=== PATIENT | female | born 1945 | race Caucasian/White ===

== ENCOUNTER 2017-09-13 17:25 | Emergency (ER) | payer MEDICARE, BC, SELFPAY ==
[2017-09-13 18:18] VITALS: BP 193/89; PULSE 84; RESP 18; TEMP 36.7; O2SAT 96; BMI 25.6
--- NOTE | 2017-09-13 18:41 | XR_ITS ---
XR chest 2V Ordering Physician: Tania Lugo Patient Age: 72 years: Female HISTORY: ITS.REASON: PAIN WITH COUGH Chest pain with cough TECHNIQUE: PA and lateral chest COMPARISON :None FINDINGS PA and lateral lateral chest . Nothing definitely acute Lungs well expanded and clear. Heart and mediastinal structures unremarkable nothing definitely acute central markings perihilar markings upper normal left probably within normal limits. No focal pneumonia. No pleural effusion. No pneumothorax. Mild hyperexpansion may reflect minor chronic changes. Slight elevation right hemidiaphragm. . Chest wall intact. Anterior marginal osteophytes mild degenerative changes T-spine but no compression fractures IMPRESSION: Nothing definitely acute.
--- NOTE | 2017-09-13 18:55 | HMH.EDUTC ---
[facility] [place] Disposition Clinical Impression: Rib pain Disposition: Home, Self-Care Condition on Discharge: Good Instructions: DI for Chronic Pain -- Adult Additional Instructions: Follow up with family doctor if you do not have a doctor pick one from the list provided to you If pain continued or worsens or you began to have trouble breathing go straight to the ER REturn if needed Over the counter medication will help with pain Prescriptions: Ibuprofen [Motrin 400mg tablet] 400 mg PO Q6HP PRN #20 tab PRN Reason: Moderate Pain Benzonatate [Tessalon Perle 100mg Cap] 100 mg PO TID PRN #15 cap PRN Reason: Cough Medical Decision Making - Medical Records Medical records reviewed: Yes: I reviewed the patient's medical records. Vital Signs: 09/13/17 18:18 Temperature 98.1 F Temperature Source Temporal Artery Scan Pulse Rate [Left Brachial] 84 Respiratory Rate 18 Blood Pressure [Right Arm] 193/89 Blood Pressure Mean [Right Arm] 123 Blood Pressure Source [Right Arm] Automatic Cuff Blood Pressure Position [Right Arm] Sitting 02 Sat by Pulse Oximetry 96 Oxygen Delivery Method Room Air Orders (Tests/Meds): ORDERS Category Date Time Status Chest XR 2 view (NOT portable) [XR chest 2V] Stat Exams 09/13/17 18:41 Ordered - Radiology Data #1 Image(s): Chest Image Reviewed: Yes I reviewed the patient's radiology image w/the ED provider Preliminary Findings: No Infiltrates Seen - Christian Inquiry Pt receiving controlled substance: No Christian was queried for this patient: No - Reevaluation(s) Time: 19:15 (Patient educated that she needed to get a family doctor and have an extensive workup) [facility] [place] HPI - General Stated complaint: coughing,pain r side, incontinence Mode of Arrival: Ambulatory Source of Information: Patient Limitations: No Limitations Description of Symptoms (Recalled from Triage Doc. by RN): C/O RIB PAIN FROM COUGHING HEENT Symptoms (Recalled from RN notes): No Resp Symptoms (Recalled from RN notes): No Skin Symptoms (Recalled from RN notes): No MS Symptoms (Recalled from RN notes): No Functional Status (Recalled from RN notes): NA - History of Present Illness Provider Complaint: Patient state that she had flu last week and now she was coughing and now having pain on her right side State that she is not sure if the pain is in her lungs or her ribs State that it feels like it may be her lung area - Related Data Previous Rx's Medication Instructions Recorded Benzonatate [Tessalon Perle 100mg 100 mg PO TID PRN #15 cap 09/13/17 Cap] Ibuprofen [Motrin 400mg 400 mg PO Q6HP PRN #20 tab 09/13/17 tablet] Allergies Allergy/AdvReac Type Severity Reaction Status Date / Time No Known Allergies Allergy Verified 09/13/17 18:21 - Worker's Comp Is this a Worker's Comp case?: No [facility] History I have reviewed the patient's past medical history: Yes - *Social History Alcohol Intake: never - Psychiatric History Expresses thoughts of harming self/others: None Suicide Plan Description: No Plan ROS Obtained: Yes All systems reviewed & no additional complaints Physical Exam - General General appearance: alert, in no apparent distress - Chest Chest inspection: Present: normal inspection, symmetric chest wall rise. Absent: tenderness - Respiratory Respiratory exam: Present: normal lung sounds bilaterally. Absent: respiratory distress - Cardiovascular Cardiovascular exam: Present: regular rate, normal rhythm. Absent: JVD - Neurological Exam Neurological exam: Present: alert, oriented X3
--- NOTE | 2017-09-13 18:59 | ED_ITS ---
[facility] [place] Disposition Clinical Impression: Rib pain Disposition: Home, Self-Care Condition on Discharge: Good Instructions: DI for Chronic Pain -- Adult Additional Instructions: Follow up with family doctor if you do not have a doctor pick one from the list provided to you If pain continued or worsens or you began to have trouble breathing go straight to the ER REturn if needed Over the counter medication will help with pain Prescriptions: Ibuprofen [Motrin 400mg tablet] 400 mg PO Q6HP PRN #20 tab PRN Reason: Moderate Pain Benzonatate [Tessalon Perle 100mg Cap] 100 mg PO TID PRN #15 cap PRN Reason: Cough Medical Decision Making - Medical Records Medical records reviewed: Yes: I reviewed the patient's medical records. Vital Signs: 09/13/17 18:18 Temperature 98.1 F Temperature Source Temporal Artery Scan Pulse Rate [Left Brachial] 84 Respiratory Rate 18 Blood Pressure [Right Arm] 193/89 Blood Pressure Mean [Right Arm] 123 Blood Pressure Source [Right Arm] Automatic Cuff Blood Pressure Position [Right Arm] Sitting 02 Sat by Pulse Oximetry 96 Oxygen Delivery Method Room Air Orders (Tests/Meds): ORDERS Category Date Time Status Chest XR 2 view (NOT portable) [XR chest 2V] Stat Exams 09/13/17 18:41 Ordered - Radiology Data #1 Image(s): Chest Image Reviewed: Yes I reviewed the patient's radiology image w/the ED provider Preliminary Findings: No Infiltrates Seen - Christian Inquiry Pt receiving controlled substance: No Christian was queried for this patient: No - Reevaluation(s) Time: 19:15 (Patient educated that she needed to get a family doctor and have an extensive workup) [facility] [place] HPI - General Stated complaint: coughing,pain r side, incontinence Mode of Arrival: Ambulatory Source of Information: Patient Limitations: No Limitations Description of Symptoms (Recalled from Triage Doc. by RN): C/O RIB PAIN FROM COUGHING HEENT Symptoms (Recalled from RN notes): No Resp Symptoms (Recalled from RN notes): No Skin Symptoms (Recalled from RN notes): No MS Symptoms (Recalled from RN notes): No Functional Status (Recalled from RN notes): NA - History of Present Illness Provider Complaint: Patient state that she had flu last week and now she was coughing and now having pain on her right side State that she is not sure if the pain is in her lungs or her ribs State that it feels like it may be her lung area - Related Data Previous Rx's Medication Instructions Recorded Benzonatate [Tessalon Perle 100mg 100 mg PO TID PRN #15 cap 09/13/17 Cap] Ibuprofen [Motrin 400mg 400 mg PO Q6HP PRN #20 tab 09/13/17 tablet] Allergies Allergy/AdvReac Type Severity Reaction Status Date / Time No Known Allergies Allergy Verified 09/13/17 18:21 - Worker's Comp Is this a Worker's Comp case?: No [facility] History I have reviewed the patient's past medical history: Yes - *Social History Alcohol Intake: never - Psychiatric History Expresses thoughts of harming self/others: None Suicide Plan Description: No Plan ROS Obtained: Yes All systems reviewed & no additional complaints Physical Exam - General General appearance: alert, in no apparent distress - Chest Chest inspection: Present: normal inspection, symmetric chest
== END 2017-09-13 19:33 | disposition home or self-care (01) ==
PROVIDERS: Emergency Provider Nurse Practitioner
DX: R07.81 Pleurodynia (principal)
CPT/HCPCS: 71046; 99202

== ENCOUNTER 2021-07-08 13:16 | Emergency (ER) | payer MEDICARE, BC, SELFPAY ==
[2021-07-08 13:40] VITALS: BP 190/91; PULSE 76; RESP 19; TEMP 36.7; O2SAT 97; BMI 24.2
--- NOTE | 2021-07-08 13:57 | XR_ITS ---
PROCEDURE INFORMATION: Exam: XR Right Humerus Exam date and time: 07/08/2021 1:57 PM Age: 76 years old Clinical indication: Injury or trauma; Fall; Blunt trauma (contusions or hematomas); Shoulder; Right; Injury date: 07/07/21; Additional info: Fall hit shoulder TECHNIQUE: Imaging protocol: XR Right humerus. Views: 2 or more views. COMPARISON: CR CXR2V XR chest 2V 09/13/2017 6:47 PM FINDINGS: Bones/joints: There is no evidence of acute fracture. There is no evidence of joint malalignment or dislocation. Mild degenerative changes of the glenohumeral joint. Soft tissues: No focal soft tissue swelling. IMPRESSION: 1. No evidence of acute fracture. 2. No evidence of acute dislocation. 3. Mild degenerative changes of the glenohumeral joint.
--- NOTE | 2021-07-08 14:19 | HMH.EDUTC ---
[facility] [place] Clinical Impression: Contusion, arm, upper Qualifiers: Encounter type: initial encounter Laterality: right Qualified Code(s): S40.021A - Contusion of right upper arm, initial encounter Disposition: Home, Self-Care Condition on Discharge: Good Instructions: How To Perform RICE (Rest, Ice, Compress, Elevate), How to Apply an Betito Wrap Additional Instructions: *RICE, Rest the extremity, Ice 15-20 minutes 3-4 times daily, Compress- wear the betito wrap as discussed as much as possible to help reduce swelling and pain, Elevate the extremity when at rest *Betito wrap is for support and help control swelling, use it except in the shower. Be sure that is not to tight but not to loose either *Elevate when resting *Over the counter Ibuprofen every 6-8 hours as needed for pain an inflammation as directed on package. If need something more can take Tylenol in between doses of Ibuprofen to help Immediately follow up with your family doctor for new or worsening of symptoms, or no noticeable improvement over the next 3-5 days Referrals: Rebeca Aguiar [Primary Care Provider] - As needed Time of Disposition: 14:29 Medical Decision Making - Christian Inquiry Pt receiving controlled substance: No Christian was queried for this patient: No Vital Signs: 07/08/21 13:40 07/08/21 14:37 Temperature 98.0 F 98.0 F Temperature Source Oral Pulse Rate 76 Pulse Rate [Left Brachial] 76 Respiratory Rate 19 19 Blood Pressure 187/88 H Blood Pressure [Left Arm] 190/91 H Blood Pressure Mean [Left Arm] 124 Blood Pressure Source [Left Arm] Automatic Cuff Blood Pressure Position [Left Arm] Sitting 02 Sat by Pulse Oximetry 97 Oxygen Delivery Method Room Air - Radiology Data #1 Image(s): Humerus Image Reviewed: Yes I have reviewed radiologist's interpretation IMPRESSION: 1. No evidence of acute fracture. 2. No evidence of acute dislocation. 3. Mild degenerative changes of the glenohumeral joint. [facility] [place] - General Stated complaint: AO 1114 fall, right arm pain Time Seen by Provider: 07/08/21 14:20 Mode of Arrival: Ambulatory Source of Information: Patient, Relative Limitations: No Limitations Description of Symptoms (Recalled from Triage Doc. by RN): PATIENT C/O PAIN TO RIGHT UPPER ARM AFTER FALLING DOWN SOME STEPS THIS MORNING HEENT Symptoms (Recalled from RN notes): No Resp Symptoms (Recalled from RN notes): No Skin Symptoms (Recalled from RN notes): No MS Symptoms (Recalled from RN notes): Yes Functional Status (Recalled from RN notes): WNL - History of Present Illness Provider Complaint: Patient states that she was packing a laundry basket when she tripped and fell on the steps at home and landed on her right arm State that since then she has been having pain in her right upper arm when she moves it or touches it and she noticed she had some bruising States that son brought her in to get her checked - Related Data Previous Rx's Medication Instructions Recorded Benzonatate [Tessalon Perle 100mg 100 mg PO TID PRN #15 cap 09/13/17 Cap] Ibuprofen [Motrin 400mg 400 mg PO Q6HP PRN #20 tab 09/13/17 tablet] Allergies Allergy/AdvReac Type Severity Reaction Status Date / Time No Known Allergies Allergy Verified 09/13/17 18:21 - Worker's Comp Is this a Worker's Comp case?: No [facility] History - Hepatitis A Screen Drug use history?: No High risk sexual behaviors?: No History of sexually transmitted infection?: No Currently employed?: No Childcare worker?: No Do you have indoor plumbing?: Yes Do you have electricity?: Yes Attestation statement:: This patient has been screened for Hepatitis A risk factors. I have reviewed the patient's past medical history: Yes - Social History Alcohol Intake: never ROS Obtained: Yes All systems reviewed & no additional complaints, Yes Systems reviewed as appropriate & no additional complaints - ENT Ears, Nose, Mouth, and Throat: Reports system revi
[2021-07-08 14:37] VITALS: BP 187/88; PULSE 76; RESP 19; TEMP 36.7; O2SAT 97
[2021-07-08 14:45] VITALS: BP 189/94; PULSE 77; RESP 18; TEMP 36.8; O2SAT 98; BMI 27.4
== END 2021-07-08 14:45 | disposition home or self-care (01) ==
PROVIDERS: Emergency Provider Nurse Practitioner; PCP Family Medicine
DX: S40.021A Contusion of right upper arm, initial encounter (principal); W10.9XXA Fall (on) (from) unspecified stairs and steps, initial encounter; Y92.019 Unspecified place in single-family (private) house as the place of occurrence of the external cause
CPT/HCPCS: G0463; 73060; 99202

== ENCOUNTER 2022-12-03 12:04 | Inpatient (IN) | payer MEDICARE, BC, SELFPAY ==
[2022-12-03] VITALS (10 sets, daily range): BP systolic 114–171; BP diastolic 64–92; PULSE 74–91; RESP 15–20; TEMP 34.3–37.2; O2SAT 92–100; BMI 25.4; BMI 20.5
--- NOTE | 2022-12-03 12:59 | XR_ITS ---
FINAL REPORT CLINICAL HISTORY: ams FINDINGS: SINGLE-VIEW CHEST The heart size is normal. The mediastinum is normal. The lungs are clear. There is no pneumothorax. There are degenerative changes of the shoulders. IMPRESSION: No acute cardiopulmonary process. Reviewed, Interpreted and Dictated by Aayush Rodrigues III, MD Transcribed by Apurva Bailey Authenticated and . [facility]
--- NOTE | 2022-12-03 12:59 | CT_ITS ---
FINAL REPORT CLINICAL HISTORY: ams FINDINGS: Axial images of the head were obtained without contrast. Coronal reformatted images were also obtained. This study was performed with techniques to keep radiation doses as low as reasonably achievable (ALARA). Individualized dose reduction techniques using automated exposure control or adjustment of mA and/or kV according to the patient''s size were employed. There is generalized age-appropriate atrophy. Periventricular low-attenuation areas are seen consistent with mild chronic ischemic changes. There is no evidence of intracranial hemorrhage or mass. There is no evidence of acute infarct. There is no evidence of shift of the midline structures. No skull abnormality is seen on the bone window images. There is mucosal thickening in the left maxillary sinus. IMPRESSION: Atrophy and mild periventricular chronic ischemic changes. No acute intracranial abnormality identified. Reviewed, Interpreted and Dictated by Aayush Rodrigues III, MD Transcribed by Apurva Bailey Authenticated and [facility]
--- NOTE | 2022-12-03 13:05 | HMH.EDGENADL ---
Discharge Plan Disposition Chief Complaint: Altered Mental Status Prescriptions Prescriptions: No Action Unobtainable Clinical Impressions Clinical Impression: Sepsis Instructions Patient Instructions: DI for Altered Mental Status Discharge ED Provider: Fernando Pryor General Adult HPI General Chief complaint: Altered Mental Status Stated complaint: AMS Time Seen by Provider: 12/03/22 12:05 Mode of Arrival: EMS Source of Information: Patient and EMS Limitations: No Limitations Description of Symptoms (Recalled from ER Triage Doc. by RN): pt to ed c/o ams. per ems family states the found pt to be confused and had became incontinent. pt has no complaints of pain but is otherwise a poor historian. History of Present Illness HPI narrative: 77-year-old female presents with confusion. Per family she has been incontinent as well. She has a left lower leg ulcer as well that is mildly red. Family is concerned she may have an infection. No other abdominal pain or chest pain however patient is poor historian and family is not available initial evaluation Related Data Home Medications Medication Instructions Recorded Confirmed Unobtainable 12/03/22 12/03/22 Allergies Allergy/AdvReac Type Severity Reaction Status Date / Time No Known Allergies Allergy Verified 09/13/17 18:21 [facility] Disclaimer: The information contained in this section may have been updated after the patient was seen, as this information can be updated by other users. Social History Smoking Status: Never smoker alcohol intake: never current occupational status: unemployed Travel in the last 8 weeks: Inside the [facility] ROS Obtained: Yes unobtainable due to mental status Physical Exam General General appearance: alert and in no apparent distress Eye Eye exam: Present PERRL and EOMI ENT ENT exam: Present normal exam and normal oropharynx Neck Neck exam: Present normal inspection Chest Chest inspection: Present symmetric chest wall rise Respiratory Respiratory exam: Present normal lung sounds bilaterally; Absent respiratory distress Cardiovascular Cardiovascular exam: Present regular rate and normal rhythm Abdominal Exam Abdominal exam: Present soft; Absent distention, tenderness, guarding, rebound, Martinez's sign or tenderness at McBurney's Point Extremities Exam Extremities exam: Present other (Ulcer left lower extremity mild redness) Back Exam Back exam: Present normal inspection Neurological Exam Neurological exam: Present alert and oriented X3 Psychiatric Psychiatric exam: Present normal affect and normal mood Skin Skin exam: Present warm, dry and intact Lymphatic Lymphatic Findings: no adenopathy Medical Decision Making Medical Records Medical records reviewed: Yes I reviewed the patient's medical records. Christian Inquiry Pt receiving controlled substance: No Christian was queried for this patient: No Vital Signs: 12/03/22 12:51 12/03/22 12:35 Temperature 93.7 F L Temperature Source Rectal Pulse Rate 74 Pulse Rate [Left Radial] 81 Respiratory Rate 20 Blood Pressure 171/92 H Blood Pressure [Right Arm] 171/92 H Blood Pressure Mean 118 Blood Pressure Mean [Right Arm] 118 02 Sat by Pulse Oximetry 100 100 Oxygen Delivery Method Room Air Lab Data Lab Results 12/03/22 12:29: Urine Color Yellow, Urine Appearance Cloudy, Urine pH 5.0, Ur Specific Lloyd >= 1.030, Urine Protein 2+, Urine Glucose (UA) Negative, Urine Ketones Trace, Urine Blood Trace-i, Urine Nitrate Positive, Urine Bilirubin 3+ A, Urine Urobilinogen >=8.0, Ur Leukocyte Esterase Trace, Urine RBC 3-5, Urine WBC 10-20, Ur Squamous Epith Cells Occasional, Urine Bacteria 1+ 12/03/22 12:29: WBC 29.6 H*, RBC 4.63, Hgb 12.3, Hct 42.5, MCV 91.8, MCH 26.6 L, MCHC 29.0 L, RDW 21.1 H, Plt Count 318, MPV 9.9, Neut % (Auto) 93.6 H, Lymph % (Auto) 4.2 L, Vigo % (Auto) 2.0, Eos % (Auto) 0.1, Baso % (Auto) 0.1, Neut # (Auto) 27.7
[2022-12-03 13:10] LABS: Coronavirus 19, PCR Not Detected (NotDetected); Influenza A, PCR Not Detected (NotDetected); Influenza B, PCR Not Detected (NotDetected)
[2022-12-03 13:10] LABS: Chloride 97 mmol/L (98-107); Sodium 139 mmol/L (136-145)
[2022-12-03 13:11] LABS: Potassium 3.1 mmoL/L (3.5-5.1)
[2022-12-03 13:13] LABS: Alanine Aminotransferase 69 U/L (12-78); Albumin Level 3.2 g/dl (3.5-5.0); Albumin/Globulin Ratio 0.8 (1.1-1.8); Alkaline Phosphatase 781 U/L (38-126); Anion Gap 20.1 mEq/L (5-15); Aspartate Amino Transferase 149 U/L (14-36); Basophils % 0.1 % (0.1-2.0); Bilirubin,Total 8.9 mg/dl (0.2-1.3); Blood Urea Nitrogen 37 mg/dl (7-17); Carbon Dioxide 25 mmol/L (22.0-30.0); Creatinine Clearance Estimated 22 mL/min (50-200); Eosinophils % 0.1 % (0.1-12.0); Estimated Glomerular Filt Rate 23 ml/min (>60); GFR (African American) 28 ML/MIN (>60); Globulin 4.1 g/dL (1.3-3.2); Hematocrit 42.5 % (37.0-47.0); Hemoglobin 12.3 g/dL (12.2-16.2); Lymphocytes # 1.2 K/mm3 (0.7-4.5); Lymphocytes % 4.2 % (10-50); Mean Corpuscular Hemoglobin 26.6 pg (27.0-31.2); Mean Corpuscular Volume 91.8 fl (81-99); Mean Platelet Volume 9.9 fl (7.4-10.4); Monocytes # 0.6 K/mm3 (0.1-1.0); Neutrophils # 27.7 K/mm3 (1.8-7.8); Neutrophils % 93.6 % (37.0-80.0); Platelet Count 318 K/mm3 (142-424); Red Blood Count 4.63 M/mm3 (4.20-5.40); Red Cell Distribution Width 21.1 % (11.5-17.5); Total Protein,Serum 7.3 g/dl (6.3-8.2); White Blood Count 29.6 K/mm3 (4.8-10.8)
[2022-12-03 13:14] LABS: Calcium 7.6 mg/dl (8.4-10.2); Glucose 109 mg/dl (74-100)
[2022-12-03 13:18] LABS: Lactic Acid 5.9 mmol/L (0.7-2.1); MANUAL DIFFERENTIAL MANUAL DIFFERENTIAL (MANUAL DIFF)
--- NOTE | 2022-12-03 13:21 | EXP.PHA.CONS ---
Pharmacy Consult Date: 12/03/22 Time: 13:21 Referring provider: DR. TELLEZ Reason for Consult:: VANCOMYCIN DOSING Allergies Allergy/AdvReac Type Severity Reaction Status Date / Time No Known Allergies Allergy Verified 09/13/17 18:21 Home Medications Medication Instructions Recorded Confirmed Type Unobtainable 12/03/22 12/03/22 History New Prescriptions to Start Prescriptions: Height: 1.52 m Weight: 58.967 kg Laboratory Results:: Laboratory Results - last 24 hr 12/03/22 12:29: WBC 29.6 H*, RBC 4.63, Hgb 12.3, Hct 42.5, MCV 91.8, MCH 26.6 L, MCHC 29.0 L, RDW 21.1 H, Plt Count 318, MPV 9.9, Neut % (Auto) 93.6 H, Lymph % (Auto) 4.2 L, Haralson % (Auto) 2.0, Eos % (Auto) 0.1, Baso % (Auto) 0.1, Neut # (Auto) 27.7 H, Lymph # (Auto) 1.2, Haralson # (Auto) 0.6, Eos # (Auto) 0.0, Baso # (Auto) 0.0 12/03/22 12:29: Sodium 139, Potassium 3.1 L, Chloride 97 L, Carbon Dioxide 25, Anion Gap 20.1 H, BUN 37 H, Creatinine 2.10 H, Estimated Creat Clear 22, Estimated GFR 23 L, Est GFR ( Amer) 28 L, Glucose 109 H, Calcium 7.6 L, Total Bilirubin 8.9 H, AST 149 H, ALT 69, Alkaline Phosphatase 781 H, Total Protein 7.3, Albumin 3.2 L, Globulin 4.1 H, Albumin/Globulin Ratio 0.8 L 12/03/22 12:29: Lactate 5.9 H Assessment and Plan Assessment and plan all Dx Assessment and Plan for all problems:: Pharmacokinetic dosing service Objective: Patient: Floor: Age: 77 yo Serum creatinine: 2.10 mg/dL Height: 59.8 Inches Weight (kg): 59 Assessment: IBW (kg): 45.35 Dosing wt(kg): 59 Estimated Creatinine clearance (ml/min): 16.6 CRCL method: Cockcroft and Gault using ibw(default). Drug selected: Vancomycin Loading dose (mg): Vd (liters): 47.2 (factor used: 0.8 L/kg) Vahe (hr-1): 0.018 Half life (hrs): 38.51 CLvanco=?? 0.850 L/hr Recommended dose: 1000 mg Interval: 48 hrs Infusion time (hrs): 2.0 Predicted peak (mcg/mL): 36.0 Predicted trough (mcg/mL): 15.73 Total body weight is being used for vancomycin dosing. Recommendations: Give Vancomycin 1000 mg q 48 hrs with an expected Cpeak of 36.0 mcg/ml and an expected Ctrough of 15.73 mcg/ml AUC 0-24 /FRANKY Data: FRANKY 0.5 mcg/mL:?? AUC/FRANKY:? 1176.5 FRANKY 1.0 mcg/mL:?? AUC/FRANKY:? 588.2 --------- FRANKY 1.5 mcg/mL:?? AUC/FRANKY:? 392.2 FRANKY 2.0 mcg/mL:?? AUC/FRANKY:? 294.1 Thank you for the consult, will continue to follow. -RADHA VUD
[2022-12-03 13:37] LABS: Hypochromasia 1+; Lymphocytes % 6 % (10-50); Monocytes % 5 % (2-9); Neutrophils % 89 % (42-76); Platelet Estimate Normal; Total Cells Counted 100
[2022-12-03 13:38] LABS: Differential Comment M
[2022-12-03 13:40] LABS: Microscopic, Urine URINE MICROSCOPIC (MICROSCOPIC)
[2022-12-03 13:42] LABS: Appearance,Urine CLOUDY (Clear); Blood, Urine TRACE-I (Negative); Color,Urine YELLOW (Yellow); Glucose,Urine (UA) Negative (Negative); Ketones,Urine TRACE (Negative); Leukocyte Esterase,Urine TRACE (Negative); Nitrate,Urine POSITIVE (Negative); Protein,Urine 2+ (Negative); Specific Gravity, Urine >= 1.030 (1.005-1.030); Urobilinogen,Urine >=8.0 EU/dl (0.2)
[2022-12-03 13:48] LABS: Bilirubin,Urine 3+ (Negative)
[2022-12-03 13:52] LABS: Bacteria,Urine 1+ /lpf; Squamous Epithelial Cell,Urine Occasional #/hpf (0-5)
[2022-12-03 14:05] LABS: Magnesium 2.7 mg/dl (1.6-2.3)
[2022-12-03 14:23] LABS: Procalcitonin 12.9 ng/mL (0.0-2.0)
--- NOTE | 2022-12-03 14:49 | CA_ITS ---
FINAL REPORT CLINICAL HISTORY: EDEMA,ULCER LT LEG FINDINGS: Color Doppler, duplex Doppler and compression sonography of the bilateral lower extremities was performed. There is no evidence of deep venous thrombosis from the level of the groin to the calf. The deep veins are patent and compressible. IMPRESSION: No evidence of deep venous thrombosis bilateral lower extremities. Reviewed, Interpreted and Dictated by Aayush Rodrigues III, MD Transcribed by Cedric Espinoza Authenticated and [facility]
--- NOTE | 2022-12-03 14:53 | EXP.HP ---
History of Present Illness *Admission Date: 12/03/22 *Reason for visit:: UTI *History of present illness: 77-year-old female with no other known medical history presents to the emergency department with encephalopathy and hypothermia. Found to have significant lab abnormalities and a UTI. Started on antibiotics. Patient is having diarrhea no urinary incontinence. Further history unable to be obtained due to altered mental status. [facility] Disclaimer: The information contained in this section may have been updated after the patient was seen, as this information can be updated by other users. Social History (Updated 12/03/22 @ 14:08 by Fernando Pryor MD) Smoking Status: Never smoker alcohol intake: never current occupational status: unemployed Travel in the last 8 weeks: Inside the [facility] Home Medications and Allergies Home Medications Medication Instructions Recorded Confirmed Type Unobtainable 12/03/22 12/03/22 History New Prescriptions to Start Prescriptions: Allergies Allergy/AdvReac Type Severity Reaction Status Date / Time No Known Allergies Allergy Verified 09/13/17 18:21 Exam Data for Last 24 hours Vital signs and Labs for Last 24 Hours: Temp Pulse Resp BP Pulse Ox 93.7 F L 82 20 121/64 95 12/03/22 12:51 12/03/22 14:01 12/03/22 12:51 12/03/22 14:01 12/03/22 14:01 Laboratory Results - last 24 hr 12/03/22 12:29: Urine Color Yellow, Urine Appearance Cloudy, Urine pH 5.0, Ur Specific [place] >= 1.030, Urine Protein 2+, Urine Glucose (UA) Negative, Urine Ketones Trace, Urine Blood Trace-i, Urine Nitrate Positive, Urine Bilirubin 3+ A, Urine Urobilinogen >=8.0, Ur Leukocyte Esterase Trace, Urine RBC 3-5, Urine WBC 10-20, Ur Squamous Epith Cells Occasional, Urine Bacteria 1+ 12/03/22 12:29: WBC 29.6 H*, RBC 4.63, Hgb 12.3, Hct 42.5, MCV 91.8, MCH 26.6 L, MCHC 29.0 L, RDW 21.1 H, Plt Count 318, MPV 9.9, Neut % (Auto) 93.6 H, Lymph % (Auto) 4.2 L, [place] % (Auto) 2.0, Eos % (Auto) 0.1, Baso % (Auto) 0.1, Neut # (Auto) 27.7 H, Lymph # (Auto) 1.2, [place] # (Auto) 0.6, Eos # (Auto) 0.0, Baso # (Auto) 0.0, Total Counted 100, Neutrophils % (Manual) 89 H, Lymphocytes % (Manual) 6 L, Monocytes % (Manual) 5, Differential Comment M, Platelet Estimate Normal, RBC Morphology Not Reportable, Hypochromasia 1+ 12/03/22 12:29: Sodium 139, Potassium 3.1 L, Chloride 97 L, Carbon Dioxide 25, Anion Gap 20.1 H, BUN 37 H, Creatinine 2.10 H, Estimated Creat Clear 22, Estimated GFR 23 L, Est GFR ( Amer) 28 L, Glucose 109 H, Calcium 7.6 L, Total Bilirubin 8.9 H, AST 149 H, ALT 69, Alkaline Phosphatase 781 H, Total Protein 7.3, Albumin 3.2 L, Globulin 4.1 H, Albumin/Globulin Ratio 0.8 L 12/03/22 12:29: Lactate 5.9 H 12/03/22 12:29: Magnesium 2.7 H, Procalcitonin 12.9 H 12/03/22 13:02: SARS-CoV-2 (PCR) Not detected, Influenza A Untype (PCR) Not detected, Influenza Type B (PCR) Not detected I & O for Last 24 hours: Intake & Output 11/30/22 12/01/22 12/02/22 12/03/22 23:59 23:59 23:59 23:59 Weight 58.967 kg Constitutional Constitutional: no acute distress and cooperative *Routine HEENT Exam Head: Present normocephalic Eye: Present EOMI and PERRL ENT: Present mucous membranes moist *Routine Neck Exam Neck: Present supple; Absent lymphadenopathy *Routine Respiratory Exam Respiratory: Present CTA bilaterally *Routine Cardiovascular Exam Cardiovascular: Present RRR *Routine Abdominal Exam Abdominal: Present soft and normoactive bowel sounds; Absent tenderness *Routine Rectal Exam Rectal:: deferred *Routine Genitalia Exam Genitalia:: deferred *Routine Extremities Exam Extremities: Absent cyanosis, clubbing or edema Comments: quarter sized hole in lower extremity. b/l edema. cold to touch *Routine Skin Exam Skin: Present warm; Absent rash *Routine Neurological Exam Neurological: Present alert and oriented X3 Assessment and Plan *Assessment and plan (1) Sepsis: Status
[2022-12-03 15:11] LABS: ABG HCO3 20.3 mmhg (22.0-26.0); ABG Oxygen Saturation 97 % (90-100); ABG PH 7.43 mmol/L (7.35-7.45); ABG PO2 90.8 mmhg (80-100); ABG TCO2 21.2 mmhg (23-27)
[2022-12-03 15:14] LABS: Oxygen ROOM AIR %; Source R BRACHIAL
--- NOTE | 2022-12-03 15:30 | PC.NURSE ---
called report to giselle rosenthal rn
[2022-12-03 17:00] LABS: POC Glucose,Bedside 65 (70-110)
[2022-12-03 17:04] LABS: Reflex Lactic Add Lactic Reflex
--- NOTE | 2022-12-03 17:57 | PC.WOUNDNOTE ---
STAGE 2 SORE PRESENT TO OUTER L LEG. [id number]
--- NOTE | 2022-12-03 18:01 | US_ITS ---
FINAL REPORT CLINICAL HISTORY: hepatic injury FINDINGS: Sonographic images of the abdomen were obtained. The liver is heterogeneous with coarsened echotexture of uncertain significance, may represent an area fatty infiltrate or possibly cirrhosis. There is a small amount of ascites. There is an echogenic area in the gallbladder fossa, may represent stone filled gallbladder. There is no evidence of biliary ductal dilatation. The common hepatic duct measures 3 mm, which is within normal limits. Limited images of the pancreas are unremarkable. The spleen measures 8 cm. The right kidney measures 10.5 cm in length. The left kidney measures 10.1 cm in length. There is normal renal echogenicity. There is no evidence of hydronephrosis. The aorta has an unremarkable appearance. Limited images of the inferior vena cava are unremarkable. IMPRESSION: Abnormal appearance of the liver. Liver mass protocol CT or MRI may be helpful to further evaluate. Echogenic area in the gallbladder fossa, may represent stone filled gallbladder. Small amount of ascites. Reviewed, Interpreted and Dictated by Aayush Rodrigues III, MD Transcribed by Apurva Bailey Authenticated and [facility]
[2022-12-03 18:06] LABS: Lactic Acid Follow Up (RFLX 1) 3.7 mmol/L (0.7-2.1)
[2022-12-03 19:43] LABS: Reflex Lactic (2 hrs) Add Lactic Reflex
--- NOTE | 2022-12-03 19:48 | PC.NURSE ---
PT IS ABLE TO STATE NAME, BIRTHDAY, AND THAT SHE IS IN THE HOSPITAL. OTHERWISE CONFUSED. IS VERY FEARFUL. DOES HAVE +2 PITTING EDEMA TO LLE WITH SEEPING NOTED. WOUND TO L OUTER LEG-CULTURE OBTAINED AND DRESSING PLACED. BED SAFETY ON. PT DID WALK TO THE BATHROOM X2 ASSIST. NO NEEDS NOTED AT THIS TIME. PT 1X1 WITH STAFF AT BEDSIDE.
[2022-12-03 20:03] LABS: Lactic Acid Follow up (RFLX 2) 3.1 mmol/L (0.7-2.1)
--- NOTE | 2022-12-04 03:28 | PC.NURSE ---
BS checked per order with a result of 47. Patient is asymptomatic with this episode of hypoglycemia. DNP photographic reproduction technician contacted for management, with one time order for 25mg dextrose IV push; prn orders also placed. Medication administered per MAR, and upon recheck BS 93.
[2022-12-04 03:32] LABS: POC Glucose,Bedside 93 (70-110)
[2022-12-04 03:53] VITALS: BP 115/61; PULSE 79; RESP 16; TEMP 36.8; O2SAT 90
[2022-12-04 06:14] LABS: Basophils % 0.1 % (0.1-2.0); Eosinophils # 0.2 K/mm3 (0.0-0.4); Eosinophils % 1.1 % (0.1-12.0); Hematocrit 36.1 % (37.0-47.0); Mean Corpuscular HGB Conc 29.9 g/dL (31.8-35.4); Mean Corpuscular Hemoglobin 26.7 pg (27.0-31.2); Mean Corpuscular Volume 89.5 fl (81-99); Mean Platelet Volume 9.9 fl (7.4-10.4); Monocytes # 0.6 K/mm3 (0.1-1.0); Neutrophils # 17.4 K/mm3 (1.8-7.8); Neutrophils % 90.6 % (37.0-80.0); Platelet Count 246 K/mm3 (142-424); Red Blood Count 4.03 M/mm3 (4.20-5.40); Red Cell Distribution Width 21.2 % (11.5-17.5); White Blood Count 19.2 K/mm3 (4.8-10.8)
[2022-12-04 06:15] LABS: MANUAL DIFFERENTIAL MANUAL DIFFERENTIAL (MANUAL DIFF)
[2022-12-04 06:19] LABS: Hemoglobin 10.8 g/dL (12.2-16.2)
[2022-12-04 07:06] LABS: Chloride 108 mmol/L (98-107); Potassium 3.7 mmoL/L (3.5-5.1); Sodium 142 mmol/L (136-145)
[2022-12-04 07:09] LABS: Alanine Aminotransferase 46 U/L (12-78); Albumin Level 2.3 g/dl (3.5-5.0); Albumin/Globulin Ratio 0.7 (1.1-1.8); Alkaline Phosphatase 615 U/L (38-126); Anion Gap 13.7 mEq/L (5-15); Aspartate Amino Transferase 125 U/L (14-36); Blood Urea Nitrogen 32 mg/dl (7-17); Calcium 6.9 mg/dl (8.4-10.2); Carbon Dioxide 24 mmol/L (22.0-30.0); Creatinine Clearance Estimated 31 mL/min (50-200); Estimated Glomerular Filt Rate 40 ml/min (>60); GFR (African American) 48 ML/MIN (>60); Globulin 3.1 g/dL (1.3-3.2); Glucose 56 mg/dl (74-100); Phosphorous 3.7 mg/dl (2.5-4.5); Total Protein,Serum 5.4 g/dl (6.3-8.2)
[2022-12-04 07:10] LABS: Magnesium 2.3 mg/dl (1.6-2.3)
[2022-12-04 07:16] VITALS: BP 116/70; PULSE 75; RESP 17; TEMP 36.7; O2SAT 91
[2022-12-04 07:43] LABS: Anisocytosis 1+; Eosinophils % 2 % (0-3); Hypochromasia 1+; Lymphocytes % 5 % (10-50); Monocytes % 7 % (2-9); Neutrophils % 86 % (42-76); Platelet Estimate Normal; Poikilocytosis 1+; Target Cells 1+; Total Cells Counted 100
--- NOTE | 2022-12-04 11:22 | HMH.PTWOUND ---
Rehab Inpt Wound Evaluation Rehab IP Wound Evaluation Start: 12/03/22 18:00 Freq: ONCE Status: Active Protocol: Document 12/04/22 11:13 BINA (Rec: 12/04/22 11:21 PHORALANA [id number]) Rehab PT Wound Assessment Subjective Subjective 77 yowf adm to [facility] with sepsis , UTI, AMS, and encephalopathy with L anterior lazaro wound present upon admission. She appears to be pleasantly confused this am and is unable to relate how long she has had the wound on her L leg. She reports she lives with her son, no steps to enter the home, and she is generally independent with all mobility without AD. Wound Left Anterior Lazaro Wound Type poss cat scratch Is This a Chronic Wound Yes Wound Length (cm) 2.1 Wound Width (cm) 1.8 Wound Depth (cm) 0.7 Wound Bed Appearance Beefy Red,Yellow Percentage Granulated (%) 75 Percentage of Slough (%) 25 Wound Margins Description Well Defined Surrounding Tissue Appearance [place] Edema Type Pitting Edema Degree 3+ Query Text:1+ Trace, Barely Detectable, Rebound 15-30 seconds 2+ Moderate, Slight Indentation, Rebound 10-20 seconds 3+ Deep, Deeper Indentation, Rebound > 30 seconds 4+ Very Deep, Rebound > 60 seconds Edema Appearance Puffy Surrounding Tissue Temperature Warm Wound Drainage Description Purulent Drainage Amount Small Drainage Odor No Odor Dressing Status Changed Wound Topical Solution/Irrigant Saline Irrigant Packing Type Alginate Primary Dressing Composite Wound Debridement Method Gauze,Mechanical Wound Debridement Amount of Tissue Moderate Removed Dressing Change Patient Tolerance Tolerated Well Plan/Recommendation Comment Wound does not appear to need further debridement at this time, but difficult to ascertain due to undetermined age and cause of the wound. Currently the would was significantly solied and had much better appearance after proper cleansing. Will allow
[2022-12-04 11:27] VITALS: BMI 20.5
[2022-12-04 11:31] LABS: POC Glucose,Bedside 69 (70-110)
--- NOTE | 2022-12-04 13:01 | CARE MANAGER ---
Recieved referral on the above stated patient for placement. I went to speak with patient for discharge planning and patient tells me that she lives with her son in [place], he doesn't work and she does not have home health. I am sure the reliability of what the patient is telling me, I have attempted to call sonJohn with no answer. Will reach out again this afternoon.
[2022-12-04 13:47] LABS: POC Glucose,Bedside 148 (70-110)
--- NOTE | 2022-12-04 14:18 | EXP.ORTH.CON ---
History of Present Illness *Admission Date: 12/03/22 *History of present illness: 77-year-old female with no other known medical history presents to the emergency department with encephalopathy and hypothermia. Found to have significant lab abnormalities and a UTI. Started on antibiotics. Patient is having diarrhea no urinary incontinence. Also found to have wound left lower extremity upon admission. Orthopedics was consulted in regards to recommendations for treatment. Family member reports that it likely started as a smaller wound and she had a potential to be picking at the wound. It is unclear on how the wound happened. Had local wound care dressing placed today. [facility] Disclaimer: The information contained in this section may have been updated after the patient was seen, as this information can be updated by other users. Social History (Updated 12/03/22 @ 14:08 by Fernando Pryor MD) Smoking Status: Never smoker alcohol intake: never current occupational status: unemployed Travel in the last 8 weeks: Inside the [facility] Meds Home Medications and Allergies Home Medications Medication Instructions Recorded Confirmed Type Unobtainable 12/03/22 12/03/22 History New Prescriptions to Start Prescriptions: Allergies Allergy/AdvReac Type Severity Reaction Status Date / Time No Known Allergies Allergy Verified 09/13/17 18:21 Ortho Exam (Inpt) Vital signs and Labs for Last 24 Hours: Temp Pulse Resp BP Pulse Ox 98.0 F 75 17 116/70 91 L 12/04/22 07:16 12/04/22 07:16 12/04/22 07:16 12/04/22 07:16 12/04/22 07:16 Laboratory Results - last 24 hr 12/03/22 12:29: Urine Color Yellow, Urine Appearance Cloudy, Urine pH 5.0, Ur Specific [place] >= 1.030, Urine Protein 2+, Urine Glucose (UA) Negative, Urine Ketones Trace, Urine Blood Trace-i, Urine Nitrate Positive, Urine Bilirubin 3+ A, Urine Urobilinogen >=8.0, Ur Leukocyte Esterase Trace, Urine RBC 3-5, Urine WBC 10-20, Ur Squamous Epith Cells Occasional, Urine Bacteria 1+ 12/03/22 12:29: Procalcitonin 12.9 H 12/03/22 14:49: Specimen Source R brachial, O2 % Room air, ABG pH 7.43, ABG pCO2 31.0 L, ABG pO2 90.8, ABG HCO3 20.3 L, ABG Total CO2 21.2 L, ABG O2 Saturation 97, ABG Base Excess -4.0 L 12/03/22 16:46: POC Glucose 65 L 12/03/22 17:31: Lactate 3.7 H 12/03/22 19:35: Lactate 3.1 H 12/04/22 03:24: POC Glucose 93 12/04/22 05:42: WBC 19.2 H D, RBC 4.03 L, Hgb 10.8 L D, Hct 36.1 L, MCV 89.5, MCH 26.7 L, MCHC 29.9 L, RDW 21.2 H, Plt Count 246, MPV 9.9, Neut % (Auto) 90.6 H, Lymph % (Auto) 5.0 L, [place] % (Auto) 3.0, Eos % (Auto) 1.1, Baso % (Auto) 0.1, Neut # (Auto) 17.4 H, Lymph # (Auto) 1.0, [place] # (Auto) 0.6, Eos # (Auto) 0.2, Baso # (Auto) 0.0, Total Counted 100, Neutrophils % (Manual) 86 H, Lymphocytes % (Manual) 5 L, Monocytes % (Manual) 7, Eosinophils % (Manual) 2, Platelet Estimate Normal, RBC Morphology Not Reportable, Hypochromasia 1+, Poikilocytosis 1+, Anisocytosis 1+, Target Cells 1+ 12/04/22 05:42: Sodium 142, Potassium 3.7, Chloride 108 H, Carbon Dioxide 24, Anion Gap 13.7, BUN 32 H, Creatinine 1.30 H D, Estimated Creat Clear 31, Estimated GFR 40 L, Est GFR ( Amer) 48 L D, Glucose 56 L D, Calcium 6.9 L, Phosphorus 3.7, Magnesium 2.3 D, Total Bilirubin 6.0 H, AST 125 H, ALT 46 D, Alkaline Phosphatase 615 H, Total Protein 5.4 L D, Albumin 2.3 L D, Globulin 3.1, Albumin/Globulin Ratio 0.7 L 12/04/22 11:22: POC Glucose 69 L 12/04/22 13:40: POC Glucose 148 H I & O for Labs for Last 24 Hours: Intake & Output 12/01/22 12/02/22 12/03/22 12/04/22 23:59 23:59 23:59 23:59 Intake Total 2350 / 2350 240 / 240 Output Total 1000 / 1000 0 / 0 Balance 1350 / 1350 240 / 240 Weight 116 lb 2 oz 115 lb 15.41 oz Microbiology Reports for the Last 24 Hours: Microbiology 12/03/22 12:29 Blood Blood Culture - Preliminary 12/03/22 19:09 Ankle,Left Gram Stain - Final 12/03/22 19:09 Ankle,Left Wound Culture - Preli
--- NOTE | 2022-12-04 14:24 | CT_ITS ---
FINAL REPORT TECHNIQUE: Thin section axial CT images with coronal and sagittal reformats were performed. This study was performed with techniques to keep radiation doses as low as reasonably achievable (ALARA). Individualized dose reduction techniques using automated exposure control or adjustment of mA and/or kV according to the patient''s size were employed. CLINICAL HISTORY: Left lower extremity wound. Evaluate for abscess , WOUND IS MID LOWER LATERAL LEG COMPARISON: None FINDINGS: There are no fractures. No bony mass. Vascular calcifications are noted. There is circumferential edema or cellulitis. A soft tissue defect is seen at the lateral aspect of the lower leg. No fluid collection is identified to suggest abscess. IMPRESSION: No acute bony abnormality. Circumferential edema or cellulitis. Lateral soft tissue defect. No evidence of abscess. Reviewed, Interpreted and Dictated by Aayush Rodrigues III, MD Transcribed by Petrona Wheeler Authenticated and [facility]
[2022-12-04 15:35] VITALS: BP 117/65; PULSE 85; RESP 16; TEMP 36.7; O2SAT 91
--- NOTE | 2022-12-04 15:51 | EXP.ACUTE.PN ---
Subjective *Date: 12/04/22 *Time: 15:51 Interval history: mental status much improved. communicative. feels better Medical Exam Vital signs and Labs for Last 24 Hours: Vital Signs Temp Pulse Resp BP Pulse Ox 12/04/22 15:35 98.0 F 85 16 117/65 91 L 12/04/22 07:16 98.0 F 75 17 116/70 91 L 12/04/22 03:53 98.3 F 79 16 115/61 90 L 12/03/22 19:41 98.3 F 86 18 147/82 H 94 L 12/03/22 16:00 97.6 F 88 19 114/74 92 L 12/03/22 15:54 99.0 F 79 17 148/82 H 97 Intake and Output 12/03/22 12/04/22 12/04/22 23:59 07:59 15:59 Intake Total 0 / 240 240 / 240 Output Total 0 / 1000 0 / 0 0 / 0 Balance 0 / 1350 0 / 240 240 / 240 Intake: Intake, Oral Amount 0 / 240 240 / 240 Output: Output, Urine Amount 0 / 1000 0 / 0 0 / 0 Other: Number of Voids 1 Number of Unmeasured Voids 1 1 1 Number of Bowel Movements 1 1 Weight 52.6 kg Patient Weight 12/04/22 23:59 Weight 52.6 kg Laboratory Results - last 24 hr 12/03/22 12:29: Urine Color Yellow, Urine Appearance Cloudy, Urine pH 5.0, Ur Specific [place] >= 1.030, Urine Protein 2+, Urine Glucose (UA) Negative, Urine Ketones Trace, Urine Blood Trace-i, Urine Nitrate Positive, Urine Bilirubin 3+ A, Urine Urobilinogen >=8.0, Ur Leukocyte Esterase Trace, Urine RBC 3-5, Urine WBC 10-20, Ur Squamous Epith Cells Occasional, Urine Bacteria 1+ 12/03/22 16:46: POC Glucose 65 L 12/03/22 17:31: Lactate 3.7 H 12/03/22 19:35: Lactate 3.1 H 12/04/22 03:24: POC Glucose 93 12/04/22 05:42: WBC 19.2 H D, RBC 4.03 L, Hgb 10.8 L D, Hct 36.1 L, MCV 89.5, MCH 26.7 L, MCHC 29.9 L, RDW 21.2 H, Plt Count 246, MPV 9.9, Neut % (Auto) 90.6 H, Lymph % (Auto) 5.0 L, [place] % (Auto) 3.0, Eos % (Auto) 1.1, Baso % (Auto) 0.1, Neut # (Auto) 17.4 H, Lymph # (Auto) 1.0, [place] # (Auto) 0.6, Eos # (Auto) 0.2, Baso # (Auto) 0.0, Total Counted 100, Neutrophils % (Manual) 86 H, Lymphocytes % (Manual) 5 L, Monocytes % (Manual) 7, Eosinophils % (Manual) 2, Platelet Estimate Normal, RBC Morphology Not Reportable, Hypochromasia 1+, Poikilocytosis 1+, Anisocytosis 1+, Target Cells 1+ 12/04/22 05:42: Sodium 142, Potassium 3.7, Chloride 108 H, Carbon Dioxide 24, Anion Gap 13.7, BUN 32 H, Creatinine 1.30 H D, Estimated Creat Clear 31, Estimated GFR 40 L, Est GFR ( Amer) 48 L D, Glucose 56 L D, Calcium 6.9 L, Phosphorus 3.7, Magnesium 2.3 D, Total Bilirubin 6.0 H, AST 125 H, ALT 46 D, Alkaline Phosphatase 615 H, Total Protein 5.4 L D, Albumin 2.3 L D, Globulin 3.1, Albumin/Globulin Ratio 0.7 L 12/04/22 11:22: POC Glucose 69 L 12/04/22 13:40: POC Glucose 148 H I & O for Labs for Last 24 Hours: Intake & Output 12/01/22 12/02/22 12/03/22 12/04/22 23:59 23:59 23:59 23:59 Intake Total 2350 / 2350 240 / 240 Output Total 1000 / 1000 0 / 0 Balance 1350 / 1350 240 / 240 Weight 52.673 kg 52.6 kg Microbiology Reports for the Last 24 Hours: Microbiology 12/03/22 12:29 Blood Blood Culture - Preliminary 12/03/22 19:09 Ankle,Left Gram Stain - Final 12/03/22 19:09 Ankle,Left Wound Culture - Preliminary 12/03/22 12:29 Urine,Catheterized Urine Culture - Preliminary Gram Negative Rods Constitutional: Present no acute distress Respiratory: Present normal respiratory effort Cardiac: Present Reg Rate and Rhythm GI: Present normal bowel sounds; Absent tenderness Extremities: Present normal inspection and full ROM Skin: Present intact; Absent erythema Neuro: Present Grossly Intact and moves all extremities Assessment and Plan *Assessment and plan (1) Wound of left lower extremity: Status: Acute Category: Medical Code(s): S81.802A - Unspecified open wound, left lower leg, initial encounter Plan 77-year-old female admitted with acute encephalopathy and sepsis likely secondary to urinary tract infection.? She also has leg ulcer and edema, uncertain eitiology, continue wound care. Acute encephalopathy secondary to uri
--- NOTE | 2022-12-04 17:47 | PC.NURSE ---
Pt was alert and oriented x3 in the am but has became more confused throughout the shift. She was up to the chair for a few hours and tolerated well. Dressing to LLE is clean, dry and intact. She's been up to the BSC multiple times for attempted bm's. She's had 2 small bm in her brief. Glucose was 69 and 148 at checks. She is currently resting in bed. Bed is locked and in the lowest position, call light is within reach.
[2022-12-04 19:31] VITALS: BP 131/87; PULSE 94; RESP 18; TEMP 36.5; O2SAT 92
[2022-12-05 01:19] LABS: POC Glucose,Bedside 120 (70-110)
--- NOTE | 2022-12-05 01:32 | PC.NURSE ---
PT BEGAN COMPLAINING THAT HER BELLY HURT AND BEGAN VOMITING. CORPORATE OPERATIONS COMPLIANCE MANAGER KATEY MADE AWARE AND PUT IN ZOFRAN ORDER. PTS ABD REMAINS SOFT AND NON TENDER BUT STATED THAT HER STOMACH WAS UPSET. ZOFRAN ADMINISTERED.
[2022-12-05 04:00] VITALS: BMI 20.5
--- NOTE | 2022-12-05 04:02 | PC.NURSE ---
NO ACUTE CHANGES SINCE PREVIOUS ASSESSMENT. PT HAS NOT SLEPT MUCH THIS SHIFT. PT REMAINS CONFUSED. BED ALARM IN PLACE. REMAINS AFEBRILE. PT HAS ONE EPISODE OF NAUSEA WITH VOMITING. TREATED WITH PRN MEDS WITH ADEQUATE RELIEF. VSS.
[2022-12-05 04:11] VITALS: BP 143/79; PULSE 94; RESP 18; TEMP 36.7; O2SAT 97
[2022-12-05 08:00] VITALS: BP 151/88; PULSE 109; RESP 18; TEMP 36.3; O2SAT 96
--- NOTE | 2022-12-05 08:28 | HMH.PTEV ---
Physical Therapy Evaluation Rehab PT IP Evaluation Start: 12/04/22 12:42 Freq: .once Status: Active Protocol: Document 12/04/22 13:30 PHODAVID (Rec: 12/05/22 08:28 PHORNE [id number]) Subjective/History History History 77 yowf adm to [facility] with sepsis , UTI, AMS, and encephalopathy with L anterior lazaro wound present upon admission. She appears to be pleasantly confused this am and is unable to relate how long she has had the wound on her L leg. She reports she lives with her son, no steps to enter the home, and she is generally independent with all mobility without AD. Subjective Subjective Pt reports L lower leg is painful, no other c/o at t his time. Remains somewhat confused. Rehab PT IP Eval Objective Appearance Patient Behavior Appropriate,Impulsive,Confused Patient Orientation Person,Place,Time Difficulty following instructions mild Speech Pattern Clear Ambulation Patient Able to Ambulate Yes Ambulation Observation IP General Gait Pattern Observation Wide Based Gait Ambulation Distance (feet) 25 Ambulation Assistive Device None Ambulation Ability Supervision/Stand by Balance Ability to Arise Able, uses arms to help Sitting Balance Steady, safe Standing Balance Steady, wide stance Dynamic Sitting Balance Ability Good Dynamic Standing Balance Ability Fair Transfers Bed Transfer Ability Supervision/Stand by Chair Transfer Ability Supervision/Stand by Sit to Stand Bed Transfer Ability Supervision/Stand by Sit to Stand Chair Transfer Ability Supervision/Stand by Rehab PT IP prob,goals,plan Problems Date of Evaluation: 12/04/22 PT IP Problems Bed Mobility,Transfers,Gait Rehab Potential Rehab Potential Good Plan PT Intervention Plan Bed Mobility,Transfers,Gait, Therapeutic Exercise PT Plan Frequency Daily Duration LOS Discharge Goals Bed Transfer Ability Independent Sit to Stand Chair Transfer Ability Independent Ambulation Assistive Device None Ambulation Distance (feet) 30 Discharge Plan PT Discharge Plan Pt is currently appropriate to return home IF she has family
[2022-12-05 08:35] LABS: Basophils % 0.1 % (0.1-2.0); Eosinophils # 0.5 K/mm3 (0.0-0.4); Eosinophils % 2.3 % (0.1-12.0); Hematocrit 37.2 % (37.0-47.0); Lymphocytes # 1.2 K/mm3 (0.7-4.5); Lymphocytes % 5.9 % (10-50); Mean Corpuscular HGB Conc 29.5 g/dL (31.8-35.4); Mean Corpuscular Hemoglobin 26.8 pg (27.0-31.2); Mean Corpuscular Volume 90.8 fl (81-99); Monocytes # 0.5 K/mm3 (0.1-1.0); Monocytes % 2.3 % (1.7-9.3); Neutrophils # 18.7 K/mm3 (1.8-7.8); Neutrophils % 89.3 % (37.0-80.0); Platelet Count 246 K/mm3 (142-424); Red Blood Count 4.09 M/mm3 (4.20-5.40); Red Cell Distribution Width 21.3 % (11.5-17.5); White Blood Count 20.9 K/mm3 (4.8-10.8)
[2022-12-05 08:38] LABS: MANUAL DIFFERENTIAL MANUAL DIFFERENTIAL (MANUAL DIFF)
[2022-12-05 08:42] LABS: Chloride 109 mmol/L (98-107); Potassium 3.9 mmoL/L (3.5-5.1); Sodium 140 mmol/L (136-145)
[2022-12-05 08:45] LABS: Alanine Aminotransferase 48 U/L (12-78); Albumin Level 2.3 g/dl (3.5-5.0); Albumin/Globulin Ratio 0.7 (1.1-1.8); Alkaline Phosphatase 798 U/L (38-126); Anion Gap 12.9 mEq/L (5-15); Aspartate Amino Transferase 122 U/L (14-36); Bilirubin,Total 5.7 mg/dl (0.2-1.3); Blood Urea Nitrogen 24 mg/dl (7-17); Calcium 6.9 mg/dl (8.4-10.2); Carbon Dioxide 22 mmol/L (22.0-30.0); Creatinine Clearance Estimated 40 mL/min (50-200); Estimated Glomerular Filt Rate 61 ml/min (>60); GFR (African American) 74 ML/MIN (>60); Globulin 3.2 g/dL (1.3-3.2); Glucose 83 mg/dl (74-100); Total Protein,Serum 5.5 g/dl (6.3-8.2)
[2022-12-05 09:26] LABS: Lymphocytes % 8 % (10-50); Monocytes % 2 % (2-9); Neutrophils % 90 % (42-76); Total Cells Counted 100
[2022-12-05 09:27] LABS: Burr Cells 1+; Platelet Estimate Normal
--- NOTE | 2022-12-05 09:34 | EXP.ORTH.PN ---
Subjective *Date: 12/05/22 *Time: 10:13 Interval history: Ms. Shepherd is a 77 year old female patient admitted to the inpatient service with encephalopathy and hypothermia. Orthopedics consulted in regards to a wound over her left lower extremity. This morning the patient is lying comfortably in bed. She is alert but remains confused, she does not respond appropriately to my questioning. She denies any symptoms or concerns at this time. Ortho Exam (Inpt) Vital signs and Labs for Last 24 Hours: Temp Pulse Resp BP Pulse Ox 97.3 F L 109 H 18 151/88 H 96 12/05/22 08:00 12/05/22 08:00 12/05/22 08:00 12/05/22 08:00 12/05/22 08:00 Laboratory Results - last 24 hr 12/04/22 11:22: POC Glucose 69 L 12/04/22 13:40: POC Glucose 148 H 12/05/22 01:12: POC Glucose 120 H 12/05/22 08:23: WBC 20.9 H*, RBC 4.09 L, Hgb 11.0 L, Hct 37.2, MCV 90.8, MCH 26.8 L, MCHC 29.5 L, RDW 21.3 H, Plt Count 246, MPV 10.0, Neut % (Auto) 89.3 H, Lymph % (Auto) 5.9 L, [place] % (Auto) 2.3, Eos % (Auto) 2.3, Baso % (Auto) 0.1, Neut # (Auto) 18.7 H, Lymph # (Auto) 1.2, [place] # (Auto) 0.5, Eos # (Auto) 0.5 H, Baso # (Auto) 0.0, Total Counted 100, Neutrophils % (Manual) 90 H, Lymphocytes % (Manual) 8 L, Monocytes % (Manual) 2, Platelet Estimate Normal, Ester Cells 1+ 12/05/22 08:23: Sodium 140, Potassium 3.9, Chloride 109 H, Carbon Dioxide 22, Anion Gap 12.9, BUN 24 H, Creatinine 0.90 D, Estimated Creat Clear 40, Estimated GFR 61, Est GFR ( Amer) 74 D, Glucose 83, Calcium 6.9 L, Total Bilirubin 5.7 H, AST 122 H, ALT 48, Alkaline Phosphatase 798 H, Total Protein 5.5 L, Albumin 2.3 L, Globulin 3.2, Albumin/Globulin Ratio 0.7 L I & O for Labs for Last 24 Hours: Intake & Output 12/02/22 12/03/22 12/04/22 12/05/22 23:59 23:59 23:59 23:59 Intake Total 2350 / 2350 340 / 340 Output Total 1000 / 1000 0 / 0 0 / 0 Balance 1350 / 1350 340 / 340 0 / 0 Weight 116 lb 2 oz 115 lb 15.41 oz 115 lb 8.356 oz Microbiology Reports for the Last 24 Hours: Microbiology 12/03/22 12:29 Urine,Catheterized Urine Culture - Final Escherichia coli 12/03/22 12:29 Blood Blood Culture - Preliminary 12/03/22 19:09 Ankle,Left Gram Stain - Final 12/03/22 19:09 Ankle,Left Wound Culture - Preliminary Head: Present normocephalic and atraumatic Eyes: Present as per HPI ENT: Present normal exam Neck: Present normal inspection, full ROM and trachea midline; Absent lymphadenopathy Respiratory: Present normal respiratory effort, able to speak in complete sentences and symmetric chest movement; Absent accessory muscle use Cardiac: Present Reg Rate and Rhythm GI: Present soft; Absent tenderness Comment:: Upon examination of the left lower extremity: Dressings present are clean, dry, and intact. No erythema, streaking noted. Thigh and calf are soft nontender; Homans' sign is negative. No clinical evidence of DVT or compartment syndrome noted. Distal neurovascular status grossly intact. Patient is actively mobilizing the foot, ankle, toes. Skin: Present intact, warm and normal turgor; Absent cyanosis, erythema, lesions or jaundice Neuro: Present Cranial Nerve 2-12 Intact, Motor Function Intact, Sensory Function Intact, alert, awake, tone normal and moves all extremities; Absent Numbness or Tingling Assessment and Plan *Assessment and plan (1) Wound of left lower extremity: Status: Acute Category: Medical Code(s): S81.802A - Unspecified open wound, left lower leg, initial encounter Plan I have discussed the clinical findings with the patient. CT of the left lower extremity is negative for evidence of abscess or other operative indication. Plan to continue local wound care, antibiotics. No plan for surgical intervention/debridement at this time. Continue medical management as per primary care team.
--- NOTE | 2022-12-05 11:15 | CARE MANAGER ---
Addendum entered by Karina Henson RN 12/06/22 15:43: Dr. Cohn spoke with son, John. Patient appropriate for Hospice and referral sent to [facility]. They are coming to see patient today. Original Note: Spoke with patient son, John and he states that they are taking this patient home at this time. He states that he is unemployed (3 months now) but his girlfriend is there if he does go back to work. PT states that patient is ok to return home with 24 hour care (due to mental status) I did offer home health services or Hospice dementia program services and he denies needing help at this time. He did tell me that he was going to move her room downstairs because he was afraid she would fall.
[2022-12-05 11:16] LABS: POC Glucose,Bedside 97 (70-110)
--- NOTE | 2022-12-05 14:54 | EXP.SURG.CON ---
History of Present Illness *Admission Date: 12/03/22 *History of present illness: Patient is a 77-year-old female who had been admitted after evaluation in the emergency department a couple of days ago on 12/03/2022 with acute mental status changes, confusion, and incontinence. She reportedly arrived with findings of encephalopathy and hypothermia. Evaluation in the emergency department revealed a small lower leg ulcer with some mild erythema. She was noted to have a white blood cell count of 29,000 with elevated lactate. Urinalysis revealed findings of urinary tract infection. Additional evaluation at the time in the emergency department revealed elevated BUN and creatinine of 37 and 2.1. She had a lactate of 5.9. Slight elevation of AST with normal ALT. Admission laboratory studies also notable for alkaline phosphatase appreciably elevated at 781 and bilirubin of 8.9. Orthopedic surgery had been consulted involving her leg ulcer. Patient did not have any abdominal imaging on initial evaluation in the emergency department. However, due to her ongoing elevation of liver function tests she underwent abdominal ultrasound today which revealed a small amount of ascites, heterogeneous coarsened echotexture of the liver, no evidence of any biliary ductal dilatation with normal common hepatic duct of 3 mm, echogenic area in gallbladder which may represent stone filled gallbladder . Surgical consultation was obtained. [facility] Disclaimer: The information contained in this section may have been updated after the patient was seen, as this information can be updated by other users. Social History (Updated 12/03/22 @ 14:08 by Fernando Pryor MD) Smoking Status: Never smoker alcohol intake: never current occupational status: unemployed Travel in the last 8 weeks: Inside the [place] Meds Home Medications and Allergies Home Medications Medication Instructions Recorded Confirmed Type No Known Home Medications 12/05/22 12/05/22 History New Prescriptions to Start Prescriptions: Allergies Allergy/AdvReac Type Severity Reaction Status Date / Time No Known Allergies Allergy Verified 09/13/17 18:21 Exam (Inpt) Vital signs and Labs for Last 24 Hours: Temp Pulse Resp BP Pulse Ox 97.3 F L 109 H 18 151/88 H 96 12/05/22 08:00 12/05/22 08:00 12/05/22 08:00 12/05/22 08:00 12/05/22 08:00 Laboratory Results - last 24 hr 12/03/22 12:29: Urine Color Yellow, Urine Appearance Cloudy, Urine pH 5.0, Ur Specific [place] >= 1.030, Urine Protein 2+, Urine Glucose (UA) Negative, Urine Ketones Trace, Urine Blood Trace-i, Urine Nitrate Positive, Urine Bilirubin 3+ A, Urine Urobilinogen >=8.0, Ur Leukocyte Esterase Trace, Urine RBC 3-5, Urine WBC 10-20, Ur Squamous Epith Cells Occasional, Urine Bacteria 1+ 12/05/22 01:12: POC Glucose 120 H 12/05/22 08:23: WBC 20.9 H*, RBC 4.09 L, Hgb 11.0 L, Hct 37.2, MCV 90.8, MCH 26.8 L, MCHC 29.5 L, RDW 21.3 H, Plt Count 246, MPV 10.0, Neut % (Auto) 89.3 H, Lymph % (Auto) 5.9 L, [place] % (Auto) 2.3, Eos % (Auto) 2.3, Baso % (Auto) 0.1, Neut # (Auto) 18.7 H, Lymph # (Auto) 1.2, [place] # (Auto) 0.5, Eos # (Auto) 0.5 H, Baso # (Auto) 0.0, Total Counted 100, Neutrophils % (Manual) 90 H, Lymphocytes % (Manual) 8 L, Monocytes % (Manual) 2, Platelet Estimate Normal, [place] Cells 1+ 12/05/22 08:23: Sodium 140, Potassium 3.9, Chloride 109 H, Carbon Dioxide 22, Anion Gap 12.9, BUN 24 H, Creatinine 0.90 D, Estimated Creat Clear 40, Estimated GFR 61, Est GFR ( Amer) 74 D, Glucose 83, Calcium 6.9 L, Total Bilirubin 5.7 H, AST 122 H, ALT 48, Alkaline Phosphatase 798 H, Total Protein 5.5 L, Albumin 2.3 L, Globulin 3.2, Albumin/Globulin Ratio 0.7 L 12/05/22 11:06: POC Glucose 97 I & O for Labs for Last 24 Hours: Intake & Output 12/03/22 12/04/22 12/05/22 12/06/22 11:59 11:59 11:59 11:59 Intake Total 2350 / 2350 340 / 340 Output Total 1000 / 1000 0 / 0 0 / 0 Balance 1350 / 1350 340 / 340 0 /
[2022-12-05 15:08] VITALS: BP 129/70; PULSE 99; RESP 18; TEMP 36.9; O2SAT 99
--- NOTE | 2022-12-05 15:20 | PC.NURSE ---
Verified with patients son that she doesn't take any home meds
--- NOTE | 2022-12-05 15:46 | CT_ITS ---
PROCEDURE INFORMATION: Exam: CT Abdomen And Pelvis With Contrast Exam date and time: 12/05/2022 6:43 PM Age: 77 years old Clinical indication: Abdominal pain; Generalized; Additional info: Abdominal pain/distension, abnormal lfts, sepsis TECHNIQUE: Imaging protocol: Computed tomography of the abdomen and pelvis with contrast. Total images: 557 Radiation optimization: All CT scans at this facility use at least one of these dose optimization techniques: automated exposure control; mA and/or kV adjustment per patient size (includes targeted exams where dose is matched to clinical indication); or iterative reconstruction. Contrast material: ISOVUE; Contrast volume: 75 ml; Contrast route: IV; REPORTING DATA: Count of CT and Cardiac NM exams in prior 12 months: This patient has received 2 known CTs and 0 known cardiac nuclear medicine studies in the 12 months prior to the current study. COMPARISON: US ABDOMEN COMPLETE 12/03/2022 6:11 PM FINDINGS: Lungs: 3.7 cm left lower lobe mass. Additional left lower lobe and lingular nodules measuring up to 11 mm in the lingula. Moderate right basilar atelectasis. Pleural spaces: Small right and trace left pleural effusions. Heart: Normal heart size. Coronary artery calcifications are present. Mediastinal space: Mild wall thickening distal esophagus. Liver: Mild hepatomegaly. Extensive liver metastases near completely replacing the entire liver parenchyma with multiple large conglomerate masses throughout. Lobulated hepatic contour secondary to the multiple hepatic masses. Gallbladder and bile ducts: Contracted gallbladder. No bile duct dilatation. Pancreas: Mild pancreatic atrophy. No pancreatic mass or pancreatitis. Spleen: Heterogeneous nonenlarged spleen from phase of contrast. Additionally suspect splenic metastases. Adrenal glands: 16 mm right adrenal nodules/metastases. Unremarkable left adrenal. Kidneys and ureters: No nephrolithiasis, hydronephrosis, or renal mass. Stomach and bowel: Unremarkable stomach and duodenum. No ileus or bowel obstruction. Small bowel appears within normal limits. Unremarkable terminal ileum. Suspect mobile cecum projecting transversely in lower abdomen. No volvulus. Scattered colonic air-fluid levels may reflect diarrheal state. Significant masslike thickening of the sigmoid colon measuring 6.5 cm in length highly concerning for extensive colonic malignancy. The colonic lumen is obscured by this mass. There is shouldering at the adjacent rectal junction. Mild rectal stool burden. Appendix: Normal appendix. Intraperitoneal space: Small quantity ascites. No free intraperitoneal air. Retroperitoneal space: Mild mesenteric and retroperitoneal edema. Vasculature: No portal vein thrombus. Atherosclerotic aorta without aneurysm. Lymph nodes: Unremarkable. No enlarged lymph nodes. Urinary bladder: Collapsed bladder. Reproductive: Prominent endometrium. Anterior uterine mass with calcification likely degenerated fibroid. Atrophic ovaries. Bones/joints: Osteopenia. Severe degenerative changes thoracolumbar spine. Mild degenerative changes bilateral hips and SI joints. No acute osseous abnormality or destructive bone lesions. Soft tissues: Moderate body wall edema. Small fat containing left inguinal hernia. Moderate fat and fluid containing right inguinal hernia. Very tiny fat containing umbilical hernia. There are few tiny gas locules in the abdominal wall likely from injection sites. IMPRESSION: 1. 6.5 cm sigmoid colonic mass compatible with primary colonic malignancy. Significant mass effect upon the colonic lumen without secondary signs of mechanical obstructio
[2022-12-05 17:02] LABS: INR 1.51 (0.9-1.1); Prothrombin Time 15.9 seconds (10.1-12.5)
--- NOTE | 2022-12-05 17:38 | EXP.ACUTE.PN ---
Subjective *Date: 12/05/22 *Time: 17:38 Interval history: More confused today. She is stating she had an accident and is upset. She keeps repeating this and is able to provide history Medical Exam Vital signs and Labs for Last 24 Hours: Vital Signs Temp Pulse Resp BP Pulse Ox 12/05/22 15:08 98.5 F 99 H 18 129/70 99 12/05/22 08:00 97.3 F L 109 H 18 151/88 H 96 12/05/22 04:11 98.1 F 94 H 18 143/79 H 97 12/04/22 19:31 97.7 F 94 H 18 131/87 92 L Intake and Output 12/05/22 12/05/22 12/05/22 07:59 15:59 23:59 Output Total 0 / 0 0 / 0 Balance 0 / 0 0 / 0 Output: Output, Urine Amount 0 / 0 0 / 0 Other: Number of Unmeasured Voids 1 1 Number of Bowel Movements 1 1 Weight 52.4 kg Patient Weight 12/05/22 23:59 Weight 52.4 kg Laboratory Results - last 24 hr 12/03/22 12:29: Urine Color Yellow, Urine Appearance Cloudy, Urine pH 5.0, Ur Specific [place] >= 1.030, Urine Protein 2+, Urine Glucose (UA) Negative, Urine Ketones Trace, Urine Blood Trace-i, Urine Nitrate Positive, Urine Bilirubin 3+ A, Urine Urobilinogen >=8.0, Ur Leukocyte Esterase Trace, Urine RBC 3-5, Urine WBC 10-20, Ur Squamous Epith Cells Occasional, Urine Bacteria 1+ 12/05/22 01:12: POC Glucose 120 H 12/05/22 08:23: WBC 20.9 H*, RBC 4.09 L, Hgb 11.0 L, Hct 37.2, MCV 90.8, MCH 26.8 L, MCHC 29.5 L, RDW 21.3 H, Plt Count 246, MPV 10.0, Neut % (Auto) 89.3 H, Lymph % (Auto) 5.9 L, [place] % (Auto) 2.3, Eos % (Auto) 2.3, Baso % (Auto) 0.1, Neut # (Auto) 18.7 H, Lymph # (Auto) 1.2, [place] # (Auto) 0.5, Eos # (Auto) 0.5 H, Baso # (Auto) 0.0, Total Counted 100, Neutrophils % (Manual) 90 H, Lymphocytes % (Manual) 8 L, Monocytes % (Manual) 2, Platelet Estimate Normal, [place] Cells 1+ 12/05/22 08:23: Sodium 140, Potassium 3.9, Chloride 109 H, Carbon Dioxide 22, Anion Gap 12.9, BUN 24 H, Creatinine 0.90 D, Estimated Creat Clear 40, Estimated GFR 61, Est GFR ( Amer) 74 D, Glucose 83, Calcium 6.9 L, Total Bilirubin 5.7 H, AST 122 H, ALT 48, Alkaline Phosphatase 798 H, Total Protein 5.5 L, Albumin 2.3 L, Globulin 3.2, Albumin/Globulin Ratio 0.7 L 12/05/22 11:06: POC Glucose 97 12/05/22 16:39: PT 15.9 H, INR 1.51 H I & O for Labs for Last 24 Hours: Intake & Output 12/02/22 12/03/22 12/04/22 12/05/22 23:59 23:59 23:59 23:59 Intake Total 2350 / 2350 340 / 340 Output Total 1000 / 1000 0 / 0 0 / 0 Balance 1350 / 1350 340 / 340 0 / 0 Weight 52.673 kg 52.6 kg 52.4 kg Microbiology Reports for the Last 24 Hours: Microbiology 12/03/22 12:34 Blood Blood Culture - Preliminary NO GROWTH AFTER 48 HOURS 12/03/22 12:29 Blood Blood Culture - Preliminary Gram Positive Cocci 12/03/22 19:09 Ankle,Left Gram Stain - Final 12/03/22 19:09 Ankle,Left Wound Culture - Preliminary Gram Negative Rods 12/03/22 12:29 Urine,Catheterized Urine Culture - Final Escherichia coli Constitutional: Present no acute distress Comment:: Confused, repeating same phrase Respiratory: Present normal respiratory effort Cardiac: Present Reg Rate and Rhythm GI: Present normal bowel sounds; Absent tenderness Extremities: Present normal inspection and full ROM Skin: Present intact; Absent erythema Neuro: Present Grossly Intact and moves all extremities Comment:: Mildly encephalopathic Assessment and Plan *Assessment and plan (1) Abdominal pain: Status: Acute Category: Medical Code(s): R10.9 - Unspecified abdominal pain (2) Encephalopathy: Status: Acute Category: Medical Code(s): G93.40 - Encephalopathy, unspecified (3) FLETCHER (acute kidney injury): Status: Acute Category: Medical Code(s): N17.9 - Acute kidney failure, unspecified (4) High anion gap metabolic acidosis: Status: Acute Category: Medical Code(s): E87.29 - Other acidosis (5) Hepatic injur
[2022-12-05 17:50] LABS: POC Glucose,Bedside 98 (70-110)
--- NOTE | 2022-12-05 17:58 | PC.NURSE ---
Patient is alert to self. She has been restless and anxious throughout the shift while awake. She's been incontinent of bowel and bladder, brief in place. Ativan administered in the am with patient resting for approx 2 hours afterward. Family has been to visit and updated on poc. Bed is locked and in the lowest position, call light is within reach.
[2022-12-05 20:00] VITALS: BP 136/66; PULSE 71; RESP 16; TEMP 36.8; O2SAT 97
--- NOTE | 2022-12-05 20:22 | CT_ITS ---
PROCEDURE INFORMATION: Exam: CT Head With Contrast Exam date and time: 12/05/2022 9:03 PM Age: 77 years old Clinical indication: Other: Head hurts; Additional info: Concern for brain mets, confusion, abnormal CT TECHNIQUE: Imaging protocol: Computed tomography of the head with intravenous contrast. Total images: 532 Radiation optimization: All CT scans at this facility use at least one of these dose optimization techniques: automated exposure control; mA and/or kV adjustment per patient size (includes targeted exams where dose is matched to clinical indication); or iterative reconstruction. Contrast material: ISOVUE; Contrast volume: 75 ml; Contrast route: IV; REPORTING DATA: Count of CT and Cardiac NM exams in prior 12 months: This patient has received 3 known CTs and 0 known cardiac nuclear medicine studies in the 12 months prior to the current study. COMPARISON: CT HEAD/BRAIN WO CON 12/03/2022 1:15 PM FINDINGS: Brain: No acute intracranial hemorrhage, midline shift, or mass. No enhancing metastases. Mild cortical atrophy. Raza-white interface is maintained. Basilar cisterns are preserved. Mild scattered remote white matter small-vessel ischemic changes. Normal enhancement of the intracranial vasculature. No evidence for abrupt vessel cut off or intracranial aneurysm. Moderate atherosclerotic irregularity bilateral intracranial internal carotid arteries. Cerebral ventricles: Unremarkable. No ventriculomegaly. Bones/joints: Osteopenia with hyperostosis of the frontal calvarium. No skull fracture. Paranasal sinuses: Polyp or retention cyst anterior base of the left maxillary sinus. No air-fluid levels. Tiny retention cyst or polyp anterior wall right maxillary sinus. Mastoid air cells: Visualized mastoid air cells are well aerated. Soft tissues: Unremarkable. IMPRESSION: 1. No acute intracranial process. 2. Specifically, no evidence for brain metastases. 3. Chronic findings as described.
[2022-12-05 22:58] LABS: POC Glucose,Bedside 80 (70-110)
[2022-12-06 04:00] VITALS: BP 122/62; PULSE 66; RESP 16; TEMP 36.6; O2SAT 94; BMI 21.1
[2022-12-06 04:50] LABS: POC Glucose,Bedside 72 (70-110)
--- NOTE | 2022-12-06 06:30 | PC.NURSE ---
pt is confused. could state her name. npo. pt went down for head ct through the night. pt rested well through the night. received medication for agitation at the beginning of the shift. received iv abx. had one episode of diarrhea. bed alarm on.
[2022-12-06 06:36] LABS: Basophils % 0.1 % (0.1-2.0); Eosinophils # 0.3 K/mm3 (0.0-0.4); Eosinophils % 1.6 % (0.1-12.0); Hematocrit 33.6 % (37.0-47.0); Hemoglobin 10.1 g/dL (12.2-16.2); Lymphocytes # 1.2 K/mm3 (0.7-4.5); Lymphocytes % 6.5 % (10-50); Mean Corpuscular HGB Conc 30.1 g/dL (31.8-35.4); Mean Corpuscular Hemoglobin 27.6 pg (27.0-31.2); Mean Corpuscular Volume 91.7 fl (81-99); Mean Platelet Volume 9.4 fl (7.4-10.4); Monocytes # 0.6 K/mm3 (0.1-1.0); Monocytes % 3.5 % (1.7-9.3); Neutrophils # 15.8 K/mm3 (1.8-7.8); Neutrophils % 88.3 % (37.0-80.0); Platelet Count 244 K/mm3 (142-424); Red Blood Count 3.67 M/mm3 (4.20-5.40); Red Cell Distribution Width 21.5 % (11.5-17.5); White Blood Count 17.9 K/mm3 (4.8-10.8)
[2022-12-06 06:40] LABS: MANUAL DIFFERENTIAL MANUAL DIFFERENTIAL (MANUAL DIFF)
--- NOTE | 2022-12-06 06:41 | EXP.SURG.PN ---
Subjective Narrative: Patient had some confusion yesterday evening but slept well overnight. After surgical consultation I ordered a CT scan of the abdomen. CT scan reveals a 6.5 cm sigmoid colon mass consistent with primary colon malignancy without obstruction. She has extensive liver metastases essentially completely replacing the normal liver parenchyma with tumor resulting in hepatomegaly. Patient also has a 3.7 cm left lower lobe lung mass, right adrenal metastases, splenic metastases, small amount of ascites. Exam Data for Last 24 hours Vital signs and Labs for Last 24 Hours: Temp Pulse Resp BP Pulse Ox 97.9 F 66 16 122/62 94 L 12/06/22 04:00 12/06/22 04:00 12/06/22 04:00 12/06/22 04:00 12/06/22 04:00 Laboratory Results - last 24 hr 12/03/22 12:29: Urine Color Yellow, Urine Appearance Cloudy, Urine pH 5.0, Ur Specific [place] >= 1.030, Urine Protein 2+, Urine Glucose (UA) Negative, Urine Ketones Trace, Urine Blood Trace-i, Urine Nitrate Positive, Urine Bilirubin 3+ A, Urine Urobilinogen >=8.0, Ur Leukocyte Esterase Trace, Urine RBC 3-5, Urine WBC 10-20, Ur Squamous Epith Cells Occasional, Urine Bacteria 1+ 12/05/22 08:23: WBC 20.9 H*, RBC 4.09 L, Hgb 11.0 L, Hct 37.2, MCV 90.8, MCH 26.8 L, MCHC 29.5 L, RDW 21.3 H, Plt Count 246, MPV 10.0, Neut % (Auto) 89.3 H, Lymph % (Auto) 5.9 L, [place] % (Auto) 2.3, Eos % (Auto) 2.3, Baso % (Auto) 0.1, Neut # (Auto) 18.7 H, Lymph # (Auto) 1.2, [place] # (Auto) 0.5, Eos # (Auto) 0.5 H, Baso # (Auto) 0.0, Total Counted 100, Neutrophils % (Manual) 90 H, Lymphocytes % (Manual) 8 L, Monocytes % (Manual) 2, Platelet Estimate Normal, [place] Cells 1+ 12/05/22 08:23: Sodium 140, Potassium 3.9, Chloride 109 H, Carbon Dioxide 22, Anion Gap 12.9, BUN 24 H, Creatinine 0.90 D, Estimated Creat Clear 40, Estimated GFR 61, Est GFR ( Amer) 74 D, Glucose 83, Calcium 6.9 L, Total Bilirubin 5.7 H, AST 122 H, ALT 48, Alkaline Phosphatase 798 H, Total Protein 5.5 L, Albumin 2.3 L, Globulin 3.2, Albumin/Globulin Ratio 0.7 L 12/05/22 11:06: POC Glucose 97 12/05/22 14:33: POC Glucose 98 12/05/22 16:39: PT 15.9 H, INR 1.51 H 12/05/22 22:50: POC Glucose 80 12/06/22 04:40: POC Glucose 72 12/06/22 05:56: WBC 17.9 H, RBC 3.67 L, Hgb 10.1 L, Hct 33.6 L, MCV 91.7, MCH 27.6, MCHC 30.1 L, RDW 21.5 H, Plt Count 244, MPV 9.4, Neut % (Auto) 88.3 H, Lymph % (Auto) 6.5 L, [place] % (Auto) 3.5, Eos % (Auto) 1.6, Baso % (Auto) 0.1, Neut # (Auto) 15.8 H, Lymph # (Auto) 1.2, [place] # (Auto) 0.6, Eos # (Auto) 0.3, Baso # (Auto) 0.0 I & O for Last 24 hours: Intake & Output 12/03/22 12/04/22 12/05/22 12/06/22 11:59 11:59 11:59 11:59 Intake Total 2350 / 2350 340 / 340 350 / 350 Output Total 1000 / 1000 0 / 0 2 / 2 Balance 1350 / 1350 340 / 340 348 / 348 Weight 115 lb 15.41 oz 115 lb 8.356 oz 119 lb 4.8 oz Microbiology Reports for the Last 24 Hours: Microbiology 12/03/22 12:34 Blood Blood Culture - Preliminary NO GROWTH AFTER 48 HOURS 12/03/22 12:29 Blood Blood Culture - Preliminary Gram Positive Cocci 12/03/22 19:09 Ankle,Left Gram Stain - Final 12/03/22 19:09 Ankle,Left Wound Culture - Preliminary Gram Negative Rods 12/03/22 12:29 Urine,Catheterized Urine Culture - Final Escherichia coli Constitutional Constitutional: no acute distress Comments: Resting comfortably Progress Note: A&P Assessment and plan (1) Abdominal pain: Status: Acute (2) Encephalopathy: Status: Acute (3) FLETCHER (acute kidney injury): Status: Acute (4) High anion gap metabolic acidosis: Status: Acute (5) Hepatic injury: Status: Acute (6) UTI (urinary tract infection): Status: Acute (7) Sepsis: Status: Acute Assessment and Plan Assessment and Plan for All Diagnoses:: 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
[2022-12-06 06:45] LABS: Chloride 112 mmol/L (98-107); Potassium 4.4 mmoL/L (3.5-5.1); Sodium 142 mmol/L (136-145)
[2022-12-06 06:48] LABS: Alanine Aminotransferase 45 U/L (12-78); Albumin Level 2.1 g/dl (3.5-5.0); Albumin/Globulin Ratio 0.7 (1.1-1.8); Alkaline Phosphatase 706 U/L (38-126); Anion Gap 9.4 mEq/L (5-15); Aspartate Amino Transferase 145 U/L (14-36); Bilirubin,Total 5.2 mg/dl (0.2-1.3); Blood Urea Nitrogen 18 mg/dl (7-17); Carbon Dioxide 25 mmol/L (22.0-30.0); Creatinine Clearance Estimated 42 mL/min (50-200); Estimated Glomerular Filt Rate 70 ml/min (>60); GFR (African American) 85 ML/MIN (>60); Globulin 2.9 g/dL (1.3-3.2); Glucose 63 mg/dl (74-100)
[2022-12-06 06:49] LABS: Calcium 6.9 mg/dl (8.4-10.2)
[2022-12-06 06:58] LABS: Phosphorous 2.3 mg/dl (2.5-4.5)
[2022-12-06 06:59] LABS: Magnesium 1.9 mg/dl (1.6-2.3)
[2022-12-06 07:01] LABS: Anisocytosis 1+; Hypochromasia 1+; Lymphocytes % 10 % (10-50); Macrocytosis 1+; Monocytes % 3 % (2-9); Neutrophils % 87 % (42-76); Platelet Estimate Normal; Total Cells Counted 100
[2022-12-06 08:00] VITALS: BP 149/80; PULSE 89; RESP 20; TEMP 36.9; O2SAT 95
[2022-12-06 11:46] VITALS: BP 118/65; PULSE 92; RESP 20; TEMP 37; O2SAT 99
--- NOTE | 2022-12-06 11:48 | PC.NURSE ---
courtesy tech note; rounded on pt, pt NPO, denied the need to use the restroom, and need to reposition. call light within reach, no further requests at this time. Reyna Lomeli, CHAYA
[2022-12-06 13:40] LABS: POC Glucose,Bedside 81 (70-110)
--- NOTE | 2022-12-06 14:45 | EXP.ACUTE.PN ---
Subjective *Date: 12/06/22 *Time: 14:45 Interval history: Remains confused. Discussed prognosis and overall findings with family at bedside. We will likely want to go home with hospice. Medical Exam Vital signs and Labs for Last 24 Hours: Vital Signs Temp Pulse Resp BP Pulse Ox 12/06/22 11:46 98.6 F 92 H 20 118/65 99 12/06/22 08:00 98.5 F 89 20 149/80 H 95 12/06/22 04:00 97.9 F 66 16 122/62 94 L 12/05/22 20:00 98.2 F 71 16 136/66 97 12/05/22 15:08 98.5 F 99 H 18 129/70 99 Intake and Output 12/05/22 12/06/22 12/06/22 23:59 07:59 15:59 Intake Total 350 / 350 Output Total 0 / 2 2 / 2 Balance 0 / 348 348 / 348 Intake: Intake, Total IV Amount 350 / 350 Cefepime HCl 2 gm In 0.9 % 100 / 100 Sodium Chloride 100 ml @ 200 mls/hr IV Q12H ABIODUN Rx#:[id number] Vancomycin HCl 1,000 mg In 0.9 250 / 250 % Sodium Chloride 250 ml @ 125 mls/hr IV 2200 ABIODUN Rx#:[id number] Output: Output, Urine Amount 0 / 0 Output, Stool Amount 2 / 2 Other: Number of Unmeasured Voids 1 1 2 Number of Urine Attends/Diapers 1 Number of Bowel Movements 1 2 Weight 54.114 kg Patient Weight 12/06/22 23:59 Weight 54.114 kg Laboratory Results - last 24 hr 12/05/22 14:33: POC Glucose 98 12/05/22 16:39: PT 15.9 H, INR 1.51 H 12/05/22 22:50: POC Glucose 80 12/06/22 04:40: POC Glucose 72 12/06/22 05:56: WBC 17.9 H, RBC 3.67 L, Hgb 10.1 L, Hct 33.6 L, MCV 91.7, MCH 27.6, MCHC 30.1 L, RDW 21.5 H, Plt Count 244, MPV 9.4, Neut % (Auto) 88.3 H, Lymph % (Auto) 6.5 L, [place] % (Auto) 3.5, Eos % (Auto) 1.6, Baso % (Auto) 0.1, Neut # (Auto) 15.8 H, Lymph # (Auto) 1.2, [place] # (Auto) 0.6, Eos # (Auto) 0.3, Baso # (Auto) 0.0, Total Counted 100, Neutrophils % (Manual) 87 H, Lymphocytes % (Manual) 10, Monocytes % (Manual) 3, Platelet Estimate Normal, Hypochromasia 1+, Anisocytosis 1+, Macrocytosis 1+ 12/06/22 05:56: Sodium 142, Potassium 4.4, Chloride 112 H, Carbon Dioxide 25, Anion Gap 9.4, BUN 18 H, Creatinine 0.80, Estimated Creat Clear 42, Estimated GFR 70, Est GFR ( Amer) 85, Glucose 63 L D, Calcium 6.9 L, Total Bilirubin 5.2 H, AST 145 H, ALT 45, Alkaline Phosphatase 706 H, Total Protein 5.0 L, Albumin 2.1 L, Globulin 2.9, Albumin/Globulin Ratio 0.7 L 12/06/22 05:56: Phosphorus 2.3 L D, Magnesium 1.9 D 12/06/22 13:33: POC Glucose 81 I & O for Labs for Last 24 Hours: Intake & Output 12/03/22 12/04/22 12/05/22 12/06/22 23:59 23:59 23:59 23:59 Intake Total 2350 / 2350 340 / 340 350 / 350 Output Total 1000 / 1000 0 / 0 0 / 2 2 / 2 Balance 1350 / 1350 340 / 340 0 / 348 348 / 348 Weight 52.673 kg 52.6 kg 52.4 kg 54.114 kg Microbiology Reports for the Last 24 Hours: Microbiology 12/03/22 19:09 Ankle,Left Gram Stain - Final 12/03/22 19:09 Ankle,Left Wound Culture - Preliminary Gram Negative Rods 12/03/22 12:29 Blood Blood Culture - Final Staphylococcus aureus 12/03/22 12:34 Blood Blood Culture - Preliminary NO GROWTH AFTER 48 HOURS Constitutional: Present no acute distress Comment:: Confused, repeating same phrase. Anxious. Encephalopathic Respiratory: Present normal respiratory effort Cardiac: Present Reg Rate and Rhythm GI: Present normal bowel sounds; Absent tenderness Extremities: Present normal inspection and full ROM Skin: Present intact; Absent erythema Neuro: Present Grossly Intact and moves all extremities Comment:: Mildly encephalopathic Assessment and Plan *Assessment and plan (1) Abdominal pain: Status: Acute Category: Medical Code(s): R10.9 - Unspecified abdominal pain (2) Wound of left lower extremity: Status: Acute Category: Medical Code(s): S81.802A - Unspecified open wound, left lower leg, initial encounter (3) Encephalopathy: Status: Acute Category: Medical Code(s):
[2022-12-06 15:29] VITALS: BP 139/65; PULSE 94; RESP 16; TEMP 36.9; O2SAT 100
--- NOTE | 2022-12-06 16:01 | PC.NURSE ---
courtesy tech note; [id number] rounded on pt, pt denied the need to void and need to reposition in bed. call light within reach, no further requests at this time. Reyna Lomeli, SRNA
--- NOTE | 2022-12-06 19:37 | PC.NURSE ---
Patients FS glucose was 61, recheck was 69, patient is npo at this time. spoke with hospitalist, stated to give one time dose d50. administered d50.
[2022-12-06 20:00] VITALS: BP 131/68; PULSE 92; RESP 22; TEMP 36.9; O2SAT 95
[2022-12-06 20:11] LABS: POC Glucose,Bedside 159 (70-110)
[2022-12-06 21:22] LABS: Vancomycin,Trough 12.7 ug/mL (5.0-10.0)
--- NOTE | 2022-12-07 01:28 | PC.NURSE ---
Notified hospitalist of blood sugar of 62. stated to hold the d50 and was going to order D5NS.
[2022-12-07 02:30] LABS: POC Glucose,Bedside 62 (70-110)
[2022-12-07 03:33] LABS: POC Glucose,Bedside 69 (70-110)
[2022-12-07 04:00] VITALS: BP 144/77; PULSE 85; RESP 20; TEMP 36.9; O2SAT 93; BMI 20.7
[2022-12-07 05:24] LABS: POC Glucose,Bedside 68 (70-110)
--- NOTE | 2022-12-07 05:39 | PC.NURSE ---
Spoke to hospitalist regarding patients glucose 68, D5NS drip increase to 75ml/hr.
--- NOTE | 2022-12-07 05:46 | PC.NURSE ---
pt rested well through the night. very confused still. hypoglycemic through the night in the 60's. started on D5NS per hospitalist. room air.
[2022-12-07 05:58] LABS: Basophils # 0.1 K/mm3 (0-0.2); Basophils % 0.2 % (0.1-2.0); Eosinophils # 0.3 K/mm3 (0.0-0.4); Eosinophils % 1.5 % (0.1-12.0); Hematocrit 34.4 % (37.0-47.0); Hemoglobin 10.3 g/dL (12.2-16.2); Lymphocytes # 1.3 K/mm3 (0.7-4.5); Lymphocytes % 6.3 % (10-50); Mean Corpuscular Hemoglobin 27.6 pg (27.0-31.2); Mean Corpuscular Volume 92.2 fl (81-99); Monocytes # 0.7 K/mm3 (0.1-1.0); Monocytes % 3.6 % (1.7-9.3); Neutrophils # 18.4 K/mm3 (1.8-7.8); Neutrophils % 88.4 % (37.0-80.0); Platelet Count 292 K/mm3 (142-424); Red Blood Count 3.73 M/mm3 (4.20-5.40); Red Cell Distribution Width 21.9 % (11.5-17.5); White Blood Count 20.8 K/mm3 (4.8-10.8)
[2022-12-07 06:08] LABS: Alanine Aminotransferase 55 U/L (12-78); Albumin Level 2.1 g/dl (3.5-5.0); Albumin/Globulin Ratio 0.7 (1.1-1.8); Alkaline Phosphatase 752 U/L (38-126); Anion Gap 6.6 mEq/L (5-15); Aspartate Amino Transferase 210 U/L (14-36); Bilirubin,Total 6.4 mg/dl (0.2-1.3); Blood Urea Nitrogen 17 mg/dl (7-17); Calcium 7.1 mg/dl (8.4-10.2); Carbon Dioxide 24 mmol/L (22.0-30.0); Chloride 115 mmol/L (98-107); Creatinine Clearance Estimated 41 mL/min (50-200); Estimated Glomerular Filt Rate 82 ml/min (>60); GFR (African American) 99 ML/MIN (>60); Globulin 3.2 g/dL (1.3-3.2); Glucose 68 mg/dl (74-100); Potassium 3.6 mmoL/L (3.5-5.1); Sodium 142 mmol/L (136-145); Total Protein,Serum 5.3 g/dl (6.3-8.2)
[2022-12-07 06:09] LABS: MANUAL DIFFERENTIAL MANUAL DIFFERENTIAL (MANUAL DIFF)
[2022-12-07 06:12] LABS: Eosinophils % 1 % (0-3); Hypochromasia 2+; Lymphocytes % 12 % (10-50); Monocytes % 1 % (2-9); Neutrophils % 86 % (42-76); Ovalocytes 1+; Platelet Estimate Normal; Stomatocytes 1+; Target Cells 1+; Total Cells Counted 100; Vancomycin,Peak 20.5 ug/ml (11-39)
[2022-12-07 07:00] LABS: Phosphorous 2.7 mg/dl (2.5-4.5)
[2022-12-07 07:01] LABS: POC Glucose,Bedside 121 (70-110)
[2022-12-07 07:41] VITALS: BP 139/92; PULSE 94; RESP 17; TEMP 36.6; O2SAT 94
--- NOTE | 2022-12-07 08:58 | EXP.PHA.PN ---
Subjective *Date: 12/07/22 *Time: 08:58 Medical Exam Vital signs and Labs for Last 24 Hours: Vital Signs Temp Pulse Resp BP Pulse Ox 12/07/22 07:41 97.9 F 94 H 17 139/92 H 94 L 12/07/22 04:00 98.5 F 85 20 144/77 H 93 L 12/06/22 20:00 98.4 F 92 H 22 131/68 95 12/06/22 15:29 98.5 F 94 H 16 139/65 100 12/06/22 11:46 98.6 F 92 H 20 118/65 99 Intake and Output 12/06/22 12/07/22 12/07/22 23:59 07:59 15:59 Intake Total 350 / 350 Output Total 0 / 2 0 / 0 Balance 0 / 698 350 / 350 Intake: Intake, Oral Amount 0 / 0 Intake, Total IV Amount 350 / 350 Cefepime HCl 2 gm In 0.9 % 100 / 100 Sodium Chloride 100 ml @ 200 mls/hr IV Q12H ABIODUN Rx#:[id number] Vancomycin HCl 1,000 mg In 0.9 250 / 250 % Sodium Chloride 250 ml @ 125 mls/hr IV 2200 [facility] Rx#:[id number] Output: Output, Urine Amount 0 / 0 0 / 0 Other: Number of Unmeasured Voids 1 1 Weight 53.24 kg Patient Weight 12/07/22 23:59 Weight 53.24 kg Laboratory Results - last 24 hr 12/06/22 13:33: POC Glucose 81 12/06/22 20:04: POC Glucose 159 H 12/06/22 20:45: Vancomycin Trough 12.7 H 12/07/22 01:25: POC Glucose 62 L 12/07/22 03:25: POC Glucose 69 L 12/07/22 05:11: POC Glucose 68 L 12/07/22 05:48: Vancomycin Peak 20.5 12/07/22 05:48: WBC 20.8 H*, RBC 3.73 L, Hgb 10.3 L, Hct 34.4 L, MCV 92.2, MCH 27.6, MCHC 30.0 L, RDW 21.9 H, Plt Count 292, MPV 9.0, Neut % (Auto) 88.4 H, Lymph % (Auto) 6.3 L, [place] % (Auto) 3.6, Eos % (Auto) 1.5, Baso % (Auto) 0.2, Neut # (Auto) 18.4 H, Lymph # (Auto) 1.3, [place] # (Auto) 0.7, Eos # (Auto) 0.3, Baso # (Auto) 0.1, Total Counted 100, Neutrophils % (Manual) 86 H, Lymphocytes % (Manual) 12, Monocytes % (Manual) 1 L, Eosinophils % (Manual) 1, Platelet Estimate Normal, Hypochromasia 2+, Target Cells 1+, Ovalocytes 1+, Stomatocytes 1+ 12/07/22 05:48: Sodium 142, Potassium 3.6, Chloride 115 H, Carbon Dioxide 24, Anion Gap 6.6, BUN 17, Creatinine 0.70, Estimated Creat Clear 41, Estimated GFR 82, Est GFR ( Amer) 99, Glucose 68 L, Calcium 7.1 L, Total Bilirubin 6.4 H, AST 210 H D, ALT 55, Alkaline Phosphatase 752 H, Total Protein 5.3 L, Albumin 2.1 L, Globulin 3.2, Albumin/Globulin Ratio 0.7 L 12/07/22 05:48: Phosphorus 2.7 12/07/22 06:55: POC Glucose 121 H I & O for Labs for Last 24 Hours: Intake & Output 12/04/22 12/05/22 12/06/22 12/07/22 23:59 23:59 23:59 23:59 Intake Total 340 / 340 350 / 700 350 / 350 Output Total 0 / 0 0 / 2 2 / 2 0 / 0 Balance 340 / 340 0 / 348 348 / 698 350 / 350 Weight 52.6 kg 52.4 kg 54.114 kg 53.24 kg Microbiology Reports for the Last 24 Hours: Microbiology 12/03/22 19:09 Ankle,Left Gram Stain - Final 12/03/22 19:09 Ankle,Left Wound Culture - Preliminary Gram Negative Rods 12/03/22 12:29 Blood Blood Culture - Final Staphylococcus aureus The patient's infection will respond to the chosen ABx?: Yes (URINE CX FROM 12/03 = E. COLI CEFEPIME SUSCEPTIBLE.) Is the patient receiving the right drug, dose, and route?: Yes Could a more targeted ABx be ordered?: No
--- NOTE | 2022-12-07 09:08 | P.CONPHA_ITS ---
Pharmacy Consult Date: 12/07/22 Time: 09:09 Referring provider: DAV ROJAS Reason for Consult:: VANCOMYCIN PEAK AND TROUGH LEVEL OBTAINED Allergies Allergy/AdvReac Type Severity Reaction Status Date / Time No Known Allergies Allergy Verified 09/13/17 18:21 Home Medications Medication Instructions Recorded Confirmed Type No Known Home Medications 12/05/22 12/05/22 History New Prescriptions to Start Prescriptions: Height: 1.6 m Weight: 53.24 kg Laboratory Results:: Laboratory Results - last 24 hr 12/06/22 13:33: POC Glucose 81 12/06/22 20:04: POC Glucose 159 H 12/06/22 20:45: Vancomycin Trough 12.7 H 12/07/22 01:25: POC Glucose 62 L 12/07/22 03:25: POC Glucose 69 L 12/07/22 05:11: POC Glucose 68 L 12/07/22 05:48: Vancomycin Peak 20.5 12/07/22 05:48: WBC 20.8 H*, RBC 3.73 L, Hgb 10.3 L, Hct 34.4 L, MCV 92.2, MCH 27.6, MCHC 30.0 L, RDW 21.9 H, Plt Count 292, MPV 9.0, Neut % (Auto) 88.4 H, Lymph % (Auto) 6.3 L, [place] % (Auto) 3.6, Eos % (Auto) 1.5, Baso % (Auto) 0.2, Neut # (Auto) 18.4 H, Lymph # (Auto) 1.3, [place] # (Auto) 0.7, Eos # (Auto) 0.3, Baso # (Auto) 0.1, Total Counted 100, Neutrophils % (Manual) 86 H, Lymphocytes % (Manual) 12, Monocytes % (Manual) 1 L, Eosinophils % (Manual) 1, Platelet Estimate Normal, Hypochromasia 2+, Target Cells 1+, Ovalocytes 1+, Stomatocytes 1+ 12/07/22 05:48: Sodium 142, Potassium 3.6, Chloride 115 H, Carbon Dioxide 24, Anion Gap 6.6, BUN 17, Creatinine 0.70, Estimated Creat Clear 41, Estimated GFR 82, Est GFR ( Amer) 99, Glucose 68 L, Calcium 7.1 L, Total Bilirubin 6.4 H, AST 210 H D, ALT 55, Alkaline Phosphatase 752 H, Total Protein 5.3 L, Albumin 2.1 L, Globulin 3.2, Albumin/Globulin Ratio 0.7 L 12/07/22 05:48: Phosphorus 2.7 12/07/22 06:55: POC Glucose 121 H Assessment and Plan Assessment and plan all Dx Assessment and Plan for all problems:: VANCOMYCIN PEAK AND TROUGH LEVEL OBTAINED. VANCOMYCIN TROUGH: 12.7 MCG/ML (12/06/222044) VANCOMYCIN PEAK: 20.5 MCG/ML (12/07/22 0548) - DRAWN 4 HOURS LATE. RECOMMENDATION CONTINUE CURRENT VANCOMYCIN DOSE OF 1000 MG IV Q24H.
--- NOTE | 2022-12-07 10:11 | EXP.DC.SUM ---
General Admission date:: 12/03/22 Discharge date: 12/07/22 HPI HPI HPI: Patient is a 77-year-old female who had been admitted after evaluation in the emergency department a couple of days ago on 12/03/2022 with acute mental status changes, confusion, and incontinence. She reportedly arrived with findings of encephalopathy and hypothermia. Evaluation in the emergency department revealed a small lower leg ulcer with some mild erythema. She was noted to have a white blood cell count of 29,000 with elevated lactate. Urinalysis revealed findings of urinary tract infection. Additional evaluation at the time in the emergency department revealed elevated BUN and creatinine of 37 and 2.1. She had a lactate of 5.9. Slight elevation of AST with normal ALT. Admission laboratory studies also notable for alkaline phosphatase appreciably elevated at 781 and bilirubin of 8.9. Orthopedic surgery had been consulted involving her leg ulcer. Patient did not have any abdominal imaging on initial evaluation in the emergency department. However, due to her ongoing elevation of liver function tests she underwent abdominal ultrasound today which revealed a small amount of ascites, heterogeneous coarsened echotexture of the liver, no evidence of any biliary ductal dilatation with normal common hepatic duct of 3 mm, echogenic area in gallbladder which may represent stone filled gallbladder . Surgical consultation was obtained. Hospital Course Hospital Course Hospital Course: Patient was admitted with encephalopathy secondary to urinary tract infection. Had an anion gap metabolic acidosis and acute kidney injury. Hepatic injury was noted on laboratory evaluation, general surgery was consulted. CT was performed which demonstrated widely metastatic cancer likely originating from colon. No obstruction. There are mets in her liver, spleen, adrenals, lungs. hospice was contacted and family was agreeable for discharge to home hospice. Exam Data for Last 24 hours Vital signs and Labs for Last 24 Hours: Temp Pulse Resp BP Pulse Ox 97.9 F 94 H 17 139/92 H 94 L 12/07/22 07:41 12/07/22 07:41 12/07/22 07:41 12/07/22 07:41 12/07/22 07:41 Laboratory Results - last 24 hr 12/06/22 13:33: POC Glucose 81 12/06/22 20:04: POC Glucose 159 H 12/06/22 20:45: Vancomycin Trough 12.7 H 12/07/22 01:25: POC Glucose 62 L 12/07/22 03:25: POC Glucose 69 L 12/07/22 05:11: POC Glucose 68 L 12/07/22 05:48: Vancomycin Peak 20.5 12/07/22 05:48: WBC 20.8 H*, RBC 3.73 L, Hgb 10.3 L, Hct 34.4 L, MCV 92.2, MCH 27.6, MCHC 30.0 L, RDW 21.9 H, Plt Count 292, MPV 9.0, Neut % (Auto) 88.4 H, Lymph % (Auto) 6.3 L, [place] % (Auto) 3.6, Eos % (Auto) 1.5, Baso % (Auto) 0.2, Neut # (Auto) 18.4 H, Lymph # (Auto) 1.3, [place] # (Auto) 0.7, Eos # (Auto) 0.3, Baso # (Auto) 0.1, Total Counted 100, Neutrophils % (Manual) 86 H, Lymphocytes % (Manual) 12, Monocytes % (Manual) 1 L, Eosinophils % (Manual) 1, Platelet Estimate Normal, Hypochromasia 2+, Target Cells 1+, Ovalocytes 1+, Stomatocytes 1+ 12/07/22 05:48: Sodium 142, Potassium 3.6, Chloride 115 H, Carbon Dioxide 24, Anion Gap 6.6, BUN 17, Creatinine 0.70, Estimated Creat Clear 41, Estimated GFR 82, Est GFR ( Amer) 99, Glucose 68 L, Calcium 7.1 L, Total Bilirubin 6.4 H, AST 210 H D, ALT 55, Alkaline Phosphatase 752 H, Total Protein 5.3 L, Albumin 2.1 L, Globulin 3.2, Albumin/Globulin Ratio 0.7 L 12/07/22 05:48: Phosphorus 2.7 12/07/22 06:55: POC Glucose 121 H I & O for Last 24 hours: Intake & Output 12/04/22 12/05/22 12/06/22 12/07/22 23:59 23:59 23:59 23:59 Intake Total 340 / 340 350 / 700 350 / 350 Output Total 0 / 0 0 / 2 2 / 2 0 / 0 Balance 340 / 340 0 / 348 348 / 698 350 / 350 Weight 52.6 kg 52.4 kg 54.114 kg 53.24 kg Microbiology Reports for the Last 24 Hours: Microbiology 12/03/22 19:09 Ankle,Left Gram Stain - Final 12/03/22 19:09 Ankle,Left Wound Culture - Preliminary Gram Negative
[2022-12-07 11:17] VITALS: BP 118/70; PULSE 89; RESP 18; TEMP 36.7; O2SAT 95
--- NOTE | 2022-12-07 14:13 | PC.NURSE ---
pt being discahrged from the hospital via EMS. She will be going to her son [facility] where she will be receiving hospice services.All equiptment has been assembled @ his home. She is currently resting well. IV removed. Dilaudid and Ativan have been filled by [facility] and are in patient belonging bag which will be sent with EMS. I spoke with son who is going to lease picker zyprexa from [facility] in [place]. Carito from Hospice has also been notified of pt discharge and medications status.
== END 2022-12-07 14:45 | disposition hospice, home (50) | DRG 872 ==
LOC: ER 12:14 → 2ND 15:12
PROVIDERS: Surgery; Admitting Provider Student in an Organized Health Care Education/Training Program; Emergency Provider Emergency Medicine; PCP Family Medicine; Visit Provider Student in an Organized Health Care Education/Training Program
DX: A41.9 Sepsis, unspecified organism (principal); N39.0 Urinary tract infection, site not specified; G93.40 Encephalopathy, unspecified; N17.9 Acute kidney failure, unspecified; E87.20 Acidosis, unspecified; L97.929 Non-pressure chronic ulcer of unspecified part of left lower leg with unspecified severity; Z51.5 Encounter for palliative care; C78.7 Secondary malignant neoplasm of liver and intrahepatic bile duct; C78.89 Secondary malignant neoplasm of other digestive organs; C79.72 Secondary malignant neoplasm of left adrenal gland; C79.71 Secondary malignant neoplasm of right adrenal gland; C18.9 Malignant neoplasm of colon, unspecified; R65.20 Severe sepsis without septic shock; R68.0 Hypothermia, not associated with low environmental temperature; S81.802A Unspecified open wound, left lower leg, initial encounter
CPT/HCPCS: 36415; 70450; 70460; 71045; 73700; 74177; 76700; 80053; 80202; 81001; 82803; 82962; 83605; 83735; 84100; 84145; 85007; 85025; 85610; 87040; 87070; 87077; 87086; 87088; 87186; 87205; 93970; 97162; 99285; C9803; J2405; J3370; Q9967; U0003; U0005